=== PATIENT | male | born 1935 | race Caucasian/White ===

== ENCOUNTER 2022-11-17 13:38 | Inpatient (IN) | payer MEDICARE ==
[2022-11-17] MEDS ORDERED: ONDANSETRON 4 MG/2 ML VIAL IVP STA (13:55)
[2022-11-17] MEDS ORDERED: LORazepam 1 MG TAB PO STA (13:56)
--- NOTE | 2022-11-17 14:03 | ED ---
General Adult HPI - General Stated complaint: CHF Time Seen by Provider: 11/17/22 13:38 Source: patient, RN notes reviewed, old records reviewed - History of Present Illness Initial comments: This is an 86-year-old male who was sent to us from [facility] for congestive heart failure and a nosebleed. Patient had the nose packed [place] packing came on the patient was not bleeding at this time. Patient states he has been having shortness of breath the last few days he went to [facility] he normally goes down to 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 Patient requested transfer to our facility. Patient states currently he still but anxious and nauseous and he still having a little bit of a hard time breathing. Patient did receive 20 of Lasix prior to arrival. Patient denies any chest pain or difficulty breathing or any recent fever chills or cough Review of Systems ROS Statement: Those systems with pertinent positive or pertinent negative responses have been documented in the HPI. ROS Other: All systems not noted in ROS Statement are negative. General Exam - General Exam Comments Initial Comments: GENERAL: Patient is well-developed and well-nourished. Patient is nontoxic and well- hydrated and is in mild distress. ENT: Neck is soft and supple. No significant lymphadenopathy is noted. Oropharynx is clear. Moist mucous membranes. Neck has full range of motion without eliciting any pain. EYES: The sclera were anicteric and conjunctiva were pink and moist. Extraocular movements were intact and pupils were equal round and reactive to light. Eyelids were unremarkable. PULMONARY: Unlabored respirations. Good breath sounds bilaterally. No audible rales rhonchi or wheezing was noted. CARDIOVASCULAR: There is a regular rate and rhythm without any murmurs gallops or rubs. ABDOMEN: Soft and nontender with normal bowel sounds. SKIN: Skin is clear with no lesions or rashes and otherwise unremarkable. NEUROLOGIC: Patient is alert and oriented x3. Cranial nerves II through XII are grossly intact. Motor and sensory are also intact. Normal speech, volume and content. Symmetrical smile. MUSCULOSKELETAL: Normal extremities with adequate strength and full range of motion. LYMPHATICS: No significant lymphadenopathy is noted PSYCHIATRIC: Normal psychiatric evaluation. Medical Decision Making - Medical Decision Making Was pt. sent in by a medical professional or institution (, PA, FREIGHT BREAKER, urgent care, hospital, or long term...) When possible be specific @ -[facility] transfer the patient to us Did you speak to anyone other than the patient for history (EMS, parent, family, police, friend...)? What history was obtained from this source @ -I spoke to the ER document [facility] prior to transfer Did you review nursing and triage notes (agree or disagree)? Why? @ -I reviewed and agree with nursing and triage notes Were old charts reviewed (outside hosp., previous admission, EMS record, old EKG, old radiological studies, urgent care reports/EKG's, long term records)? Report findings @ -I reviewed all the documentation lab work and radiological studies from [facility]. Differential Diagnosis (chest pain, altered mental status, abdominal pain women, abdominal pain men, vaginal bleeding, weakness, fever, dyspnea, syncope, headache, dizziness, GI bleed, back pain, seizure, CVA, palpatations, mental health, musculoskeletal)? @ -Differential Dyspnea: Coronary syndrome, arrhythmia, tamponade, asthma, COPD, pulmonary embolism, pneumonia, pneumothorax, pulmonary effusion, anaphylaxis, diabetic ketoacidosis, flailed chest, pulmonary contusion, diaphragmatic rupture, anemia, neuromuscular, this is not meant to be an all-inclusive list. EKG interpreted by me (3pts min.). @ -As above X-rays interpreted by me (1pt min.). @ -None done CT interpreted by me (1pt min.). @ -None done U/S interpreted by me (1pt. min.). @ -None done What testing was considered but not performed or refused? (CT, X-rays, U/S, labs)? Why? @ -None What meds were considered but not given or refused? Why? @ -None Did you discuss the management of the patient with other professionals (professionals i.e. , PA, FREIGHT BREAKER, lab, RT, psych nurse, adoption social worker, wan support specialist, teacher, police or patrol park officer, case checker)? Give summary @ -With Dr. Landry he agreed to admit the patient admitted the patient Was smoking cessation discussed for >3mins.? @ -No Was critical care preformed (if so, how long)? @ -No Were there social determinants of health that impacted care today? How? (Homelessness, low income, unemployed, alcoholism, drug addiction, transportation, low edu. Level, literacy, decrease access to med. care, intermediate, rehab)? @ -No Was there de-escalation of care discussed even if they declined (Discuss DNR or withdrawal of care, Hospice)? DNR status @ -No What co-morbidities impacted this encounter? (DM, HTN, Smoking, COPD, CAD, Cancer, CVA, ARF, Chemo, Hep., AIDS, mental health diagnosis, sleep apnea, morbid obesity)? @ -None Was patient admitted / discharged? Hospital course, mention meds given and route, prescriptions, significant lab abnormalities, going to OR and other pertinent info. @ -Patient was given some Zofran for the nausea and Ativan for his anxiety. Patient oriented 20 of Lasix prior to arrival so at this point time I will hold the diuretics in order them on the floor. Undiagnosed new problem with uncertain prognosis? @ -No Drug Therapy requiring intensive monitoring for toxicity (Heparin, Nitro, Insulin, Cardizem)? @ -No Were any procedures done? @ -No Diagnosis/symptom? @ -Acute pulmonary edema Acute, or Chronic, or Acute on Chronic? @ -Acute Uncomplicated (without systemic symptoms) or Complicated (systemic symptoms)? @ -,. Side effects of treatment? @ -No Exacerbation, Progression, or Severe Exacerbation? @ -No Poses a threat to life or bodily function? How? (Chest pain, [place], [place], pneumonia, PE, COPD, DKA, ARF, appy, cholecystitis, CVA, Diverticulitis, Homicidal, Suicidal, threat to staff... and all critical care pts) @ -Yes this could lead to have hypoxia and end organ dysfunction Disposition Clinical Impression: Acute pulmonary edema, Epistaxis Disposition: ADMITTED IP TO THIS HOSP Is patient prescribed a controlled substance at d/c from ED?: No Referrals: Cosme Mac MD [Primary Care Provider] - 1-2 days Time of Disposition: 14:03
[2022-11-17] MEDS: FUROSEMIDE 10 MG/ML 4 ML VIAL IV SCH ×2 (14:36→20:40)
[2022-11-17] MEDS ORDERED: DEXTROSE 50% SYRINGE 50 ML IVP PRN ×2 (18:30)
[2022-11-17 19:55] LABS: Glucose,Whole Blood 189 mg/dL (70-110)
[2022-11-17] MEDS: CLOTRIMAZOLE TROCHE 10 MG TROCHE PO SCH ×2 (20:40→23:46)
[2022-11-17] MEDS: POTASSIUM CHLORIDE ER 20 MEQ TAB.ER PO SCH (20:40)
[2022-11-17] MEDS: NITROGLYCERIN EXTENDED RELEASE 2.5 MG CAPSULE.ER PO SCH (20:40)
[2022-11-17] MEDS: VIT A,C & E-LUTEIN-MINERALS 1 EACH TAB PO SCH (20:40)
[2022-11-17] MEDS: GABAPENTIN 300 MG CAP PO SCH (20:40)
[2022-11-17] MEDS: METOPROLOL SUCCINATE (ER) 100 MG TAB.ER.24H PO SCH (20:40)
[2022-11-17] MEDS: INSULIN ASPART (NovoLOG) 100 UNIT/ML VIAL SQ SCH (20:41)
--- NOTE | 2022-11-17 21:28 | P.HPIM ---
History of Present Illness H&P Date: 11/17/22 Chief Complaint: Epistaxis This is a pleasant 86-year-old patient, but chronic stable medical conditions include CAD, CHF, diabetes, GERD, hypertension, hyperlipidemia, gout, neuropathy, permanent pacemaker. Patient is very hard of hearing. Patient was transferred here from [facility]. As per the ER notes she was transferred here for CHF and severe nosebleed. Nasal packing had been done at other hospital and he was not bleeding when he arrived here. In fact his packing fell out. Patient himself states his breathing is not a problem. And at this just like his baseline. Apparently was given some Lasix Arlet been coming here. No fever no chills no c ough. Does use a walker at baseline. Review of systems: GEN.: None EYES: None HEENT: Nasal bleeding NECK: None RESPIRATORY: Questionable short of breath CARDIOVASCULAR: None GASTROINTESTINAL: None GENITOURINARY: None MUSCULOSKELETAL: Joint pains LYMPHATICS: None HEMATOLOGICAL: None PSYCHIATRY: None NEUROLOGICAL: Does use a walker Past medical history to include: CAD, CHF, diabetes, GERD, hard of hearing, hypertension, hyperlipidemia, gout, neuropathy, esophageal spasm, permanent pacemaker Social history: . No smoking or alcohol. Does use a walker. Physical examination: VITAL SIGNS: 98.4, 67, 19, 1 63 x 73, 97% on 3 L GENERAL: BMI 33.7, laying in bed awake slightly tired. EYES: Pupils equal. Conjunctiva normal. HEENT: External appearance of nose and ears normal, oral cavity grossly normal hard of hearing. NECK: JVD not raised; masses not palpable. HEART: First and second heart sounds are normal; no edema. LUNGS: Respiratory rate increased; decreased breath sounds. ABDOMEN: Soft, nontender, liver spleen not palpable, no masses palpable. PSYCH: Able to hold a simple conversationl. MUSCULOSKELETAL:No Clubbing/cyanosis;muscles-grossly intact. OA NEUROLOGICAL: Cranial nerves grossly intact; no facial asymmetry, power and sensation grossly intact. LYMPHATICS: No lymph nodes palpable in the axilla and neck INVESTIGATIONS, Assessment and plan: -Possible acute CHF exacerbation. Patient's feels he is at baseline. Received Lasix prior to coming down from [facility]. Telemetry. Chest x-ray. Consult cardio . ProBNP.. 2-D echo -Severe epistaxis. Patient received a nasal packing at [facility]. Packing fell out before the patient arrived here. Currently no bleeding. -Depression Prozac -Peripheral neuropathy Neurontin -Diabetes mellitus type 2 and oral hypoglycemic Amaryl. Follow Accu-Cheks -Essential hypertension Toprol-XL 100 mg twice a day. Losartan. 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 Past Medical History History of Any Multi-Drug Resistant Organisms: None Reported Past Surgical History: Pacemaker Additional Past Surgical History / Comment(s): catract Past Psychological History: No Psychological Hx Reported Smoking Status: Never smoker Past Alcohol Use History: None Reported Past Drug Use History: None Reported - Past Family History Father Family Medical History: Cancer Additional Family Medical History / Comment(s): lung cancer Mother Family Medical History: Cancer Additional Family Medical History / Comment(s): breast cancer Medications and Allergies Home Medications Medication Instructions Recorded Confirmed Type Aspirin EC [Ecotrin Low Dose] 81 mg PO DAILY 11/17/22 11/17/22 History Biotin [Biotin Disolve] 10,000 mcg PO DAILY 11/17/22 11/17/22 History Clotrimazole Teja [Mycelex 10 mg PO 5XD 11/17/22 11/17/22 History Teja] FLUoxetine HCL [PROzac] 40 mg PO DAILY 11/17/22 11/17/22 History Fexofenadine HCl [Yumi Allergy] 180 mg PO DAILY 11/17/22 11/17/22 History Furosemide [Lasix] 20 mg PO HS 11/17/22 11/17/22 History Furosemide [Lasix] 40 mg PO DAILY 11/17/22 11/17/22 History Gabapentin [Neurontin] 300 mg PO TID 11/17/22 11/17/22 History Glimepiride [Amaryl] 1 mg PO DAILY 11/17/22 11/17/22 History Losartan Potassium 50 mg PO DAILY 11/17/22 11/17/22 History Meclizine [Antivert] 12.5 mg PO BID PRN 11/17/22 11/17/22 History Metoprolol Succinate (ER) [Toprol 100 mg PO BID 11/17/22 11/17/22 History Xl] Multivit-Min/FA/Lycopen/Lutein 1 tab PO DAILY 11/17/22 11/17/22 History [Centrum Silver Tablet] Nitroglycerin Extended Release 2.5 mg PO BID 11/17/22 11/17/22 History [Nitro-Bid] Potassium Chloride ER [K-Dur 20] 20 meq PO BID 11/17/22 11/17/22 History Tamsulosin HCl [Flomax] 0.4 mg PO DAILY 11/17/22 11/17/22 History Vit C/E/Zn/Coppr/Lutein/Zeaxan 1 cap PO BID 11/17/22 11/17/22 History [Preservision Areds 2 Softgel] hydrALAZINE HCL [Apresoline] 50 mg PO DAILY 11/17/22 11/17/22 History Allergies Allergy/AdvReac Type Severity Reaction Status Date / Time cephalexin [From Keflex] Allergy Unknown Verified 11/17/22 16:23 codeine Allergy Unknown Verified 11/17/22 16:23 Penicillins Allergy Unknown Verified 11/17/22 16:23 prochlorperazine Allergy Unknown Verified 11/17/22 16:23 [From Compazine] Sulfa (Sulfonamide Allergy Unknown Verified 11/17/22 16:23 Antibiotics) Physical Exam Vitals: Vital Signs Temp Pulse Resp BP Pulse Ox 11/17/22 15:05 97.8 F 61 18 163/73 97 11/17/22 14:25 18 11/17/22 14:05 97.7 F 60 18 183/72 97 11/17/22 14:01 97.6 F 68 18 179/69 97 Intake and Output 11/17/22 11/17/22 11/17/22 06:59 14:59 22:59 Other: Weight 94.801 kg
[2022-11-18 06:15] LABS: Glucose,Whole Blood 115 mg/dL (70-110)
[2022-11-18] MEDS: CLOTRIMAZOLE TROCHE 10 MG TROCHE PO SCH ×4 (06:16→21:49)
[2022-11-18] MEDS: FUROSEMIDE 10 MG/ML 4 ML VIAL IV SCH ×3 (06:16→21:09)
[2022-11-18] MEDS: INSULIN ASPART (NovoLOG) 100 UNIT/ML VIAL SQ SCH ×3 (06:18→17:04)
[2022-11-18] MEDS ORDERED: LOSARTAN 50 MG TAB PO SCH (09:00)
[2022-11-18] MEDS ORDERED: NON FORMULARY DRUG (Biotin [Biotin Disolve] 10,000 MCG Tablet) PO SCH (09:00)
[2022-11-18 09:39] LABS: Basophils % (A) 1 %; Eosinophils # (A) 0.1 k/uL (0-0.7); Eosinophils % (A) 2 %; HCT 30.5 % (39.0-53.0); HGB 9.7 gm/dL (13.0-17.5); Hypochromasia Moderate; Lymphocytes # (A) 1.1 k/uL (1.0-4.8); Lymphocytes % (A) 22 %; MCH 26.9 pg (25.0-35.0); MCHC 31.8 g/dL (31.0-37.0); MCV 84.5 fL (80.0-100.0); Mean Platelet Volume 8.2; Monocytes # (A) 0.4 k/uL (0-1.0); Monocytes % (A) 8 %; Neutrophils # (A) 3.3 k/uL (1.3-7.7); Neutrophils % (A) 65 %; Platelet Count 176 k/uL (150-450); RBC 3.61 m/uL (4.30-5.90); RDW 15.2 % (11.5-15.5); WBC 5.1 k/uL (3.8-10.6)
--- NOTE | 2022-11-18 09:44 | P.CRDCN ---
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 Quintero, with past medical history of hypertension, hyperlipidemia, history of coronary artery disease with stent of the LAD, open mitral valve surgery in -details are not available, chronic heart failure, paroxysmal atrial fibrillation, pacemaker, diabetes mellitus type 2, COPD. Details of his cardiac history are not known at this time. Patient presented to [facility] with complaints of difficulty breathing and nosebleed. Patient had packing done of the nosebleed at [facility] and this subsequently subsided. Creatinine was 1.38, magnesium 1.8 and potassium 3.5. Troponin negative 1 and proBNP 4843. Due to heart failure, patient had requested transfer to [facility] although because ENT was not available there, patient was transferred to [facility]. We have been asked to evaluate the patient for acute pulmonary edema. Patient states he has had episodes of the same in the past but not as bad. Patient was started on IV Lasix received 20 mg at [facility] prior to transfer. He states he feels he urinated quite a bit overnight and shortness of breath is improved. Patient had a recent hospitalization at [facility] which time he was treated for acute systolic heart failure and non-ST elevated NC status post cardiac catheterization finding total occlusion of the mid LAD. Home cardiac medications: Aspirin 81 mg daily, Lasix 40 mg in the morning 20 oh grams in the evening, hydralazine 50 mg daily, losartan 50 mg daily, Toprol-XL 100 mg twice daily, Nitro-Bid 2.5 mg twice daily, potassium chloride 20 mEq twic e daily Patient underwent cardiac catheterization 09/[address] Garg at [facility] that revealed HEAD OF [employer] of mid LAD where he had a previous stent. Dominant RCA and a nondominant circumflex and left main are free of significant disease. Echocardiogram performed August 2022 and [facility] revealed EF 30- 35%, RVSP 50-55 mmHg. Review Of Systems: At the time of my evaluation: Constitutional: No fever, no chills. No weakness, fatigue or lethargy. EENT: No headache. No dizziness. Lungs: Reports shortness of breath, cough, no sputum production. No wheezing. Cardiovascular: No chest pain, no lower extremity edema. No palpitations. No paroxysmal nocturnal dyspnea. No orthopnea. No lightheadedness or dizziness. No syncopal episodes. Abdominal: No abdominal pain. No nausea, vomiting. No diarrhea. No constipation. No bloody or tarry stools. Genitourinary: No dysuria.. No urinary retention. Musculoskeletal: No myalgias. No muscle weakness, no frequent falls. No back pain. No neck pain. Integumentary: No wounds. No rash. No unusual bruising. Neurologic: No aphasia. No facial droop. No change in mentation. No head injury. No headache. Physical examination: Gen: This is a an 86-year-old male. He is resting bed and appears to be comfortable at rest. VS: reviewed HEENT: Head is atraumatic, normocephalic. Pupils equal, round. Sclerae is anicteric. NECK: Supple. No JVD. . LUNGS: Diminished in the bases. No intercostal retractions. HEART: Regular rate and rhythm. No murmur. ABDOMEN: Soft No tenderness. EXTREMITIES: Trace bilateral pedal edema. No calf tenderness. NEUROLOGICAL: Patient is awake, alert and oriented x3. Assessment: Acute on chronic systolic heart failure Coronary artery disease History of mitral valve surgery Paroxysmal atrial fibrillation not on anticoagulation unknown reason for this History of pacemaker implantation Diabetes mellitus type 2 COPD Plan: Resume patient's home cardiac medications Continue patient on Lasix 20 mg IV every 8 hours Monitor I&O, daily weights, I's and renal function Obtain patient records from [facility]. Obtain 2-D echocardiogram and Doppler study to assess cardiac structure and function Further recommendations to follow based upon clinical course Thank you kindly for this consultation. Nurse practitioner note has been reviewed, I agree with documented findings and plan of care. Patient was seen and examined. Past Medical History Past Medical History: Coronary Artery Disease (CAD), Chest Pain / Angina, Heart Failure, Diabetes Mellitus, GERD/Reflux, Hearing Disorder / Deafness, Hyperlipidemia, Hypertension Additional Past Medical History / Comment(s): gout, neuropathy, esophageal spas ms History of Any Multi-Drug Resistant Organisms: None Reported Past Surgical History: Pacemaker Additional Past Surgical History / Comment(s): catract Past Anesthesia/Blood Transfusion Reactions: No Reported Reaction Type of Cardiac Device: Permanent Pacemaker Device Placement Date:: 06/11/2021 Past Psychological History: No Psychological Hx Reported Smoking Status: Never smoker Past Alcohol Use History: None Reported Past Drug Use History: None Reported - Past Family History Father Family Medical History: Cancer Additional Family Medical History / Comment(s): lung cancer Mother Family Medical History: Cancer Additional Family Medical History / Comment(s): breast cancer Medications and Allergies Home Medications Medication Instructions Recorded Confirmed Type Aspirin EC [Ecotrin Low Dose] 81 mg PO DAILY 11/17/22 11/17/22 History Biotin [Biotin Disolve] 10,000 mcg PO DAILY 11/17/22 11/17/22 History Clotrimazole Teja [Mycelex 10 mg PO 5XD 11/17/22 11/17/22 History Teja] FLUoxetine HCL [PROzac] 40 mg PO DAILY 11/17/22 11/17/22 History Fexofenadine HCl [Yumi Allergy] 180 mg PO DAILY 11/17/22 11/17/22 History Furosemide [Lasix] 20 mg PO HS 11/17/22 11/17/22 History Furosemide [Lasix] 40 mg PO DAILY 11/17/22 11/17/22 History Gabapentin [Neurontin] 300 mg PO TID 11/17/22 11/17/22 History Glimepiride [Amaryl] 1 mg PO DAILY 11/17/22 11/17/22 History Losartan Potassium 50 mg PO DAILY 11/17/22 11/17/22 History Meclizine [Antivert] 12.5 mg PO BID PRN 11/17/22 11/17/22 History Metoprolol Succinate (ER) [Toprol 100 mg PO BID 11/17/22 11/17/22 History Xl] Multivit-Min/FA/Lycopen/Lutein 1 tab PO DAILY 11/17/22 11/17/22 History [Centrum Silver Tablet] Nitroglycerin Extended Release 2.5 mg PO BID 11/17/22 11/17/22 History [Nitro-Bid] Potassium Chloride ER [K-Dur 20] 20 meq PO BID 11/17/22 11/17/22 History Tamsulosin HCl [Flomax] 0.4 mg PO DAILY 11/17/22 11/17/22 History Vit C/E/Zn/Coppr/Lutein/Zeaxan 1 cap PO BID 11/17/22 11/17/22 History [Preservision Areds 2 Softgel] hydrALAZINE HCL [Apresoline] 50 mg PO DAILY 11/17/22 11/17/22 History Allergies Allergy/AdvReac Type Severity Reaction Status Date / Time cephalexin [From Keflex] Allergy Unknown Verified 11/17/22 16:23 codeine Allergy Unknown Verified 11/17/22 16:23 Penicillins Allergy Unknown Verified 11/17/22 16:23 prochlorperazine Allergy Unknown Verified 11/17/22 16:23 [From Compazine] Sulfa (Sulfonamide Allergy Unknown Verified 11/17/22 16:23 Antibiotics) Physical Exam Vitals: Vital Signs Temp Pulse Pulse Resp BP BP Pulse Ox 11/18/22 08:01 96 11/18/22 04:00 68 18 144/68 100 11/18/22 02:00 63 18 11/18/22 00:00 63 18 152/71 98 11/17/22 20:00 97.9 F 74 18 143/63 99 11/17/22 16:38 98.4 F 67 19 191/80 100 11/17/22 15:05 97.8 F 61 18 163/73 97 11/17/22 14:25 18 11/17/22 14:05 97.7 F 60 18 183/72 97 11/17/22 14:01 97.6 F 68 18 179/69 97 Intake and Output 11/17/22 11/18/22 11/18/22 22:59 06:59 14:59 Output Total 350 Balance -350 Output: Urine 350 Other: Voiding Method Toilet Toilet Urinal Urinal # Voids 250 Weight 94.801 kg 90.8 kg Results 11/18/22 07:55 11/18/22 07:55 Current Medications Generic Name Dose Route Start Last Admin Trade Name Freq PRN Reason Stop Dose Admin Aspirin 81 mg 11/18/22 09:00 Aspirin 81 Mg PO DAILY ANGELES Clotrimazole 10 mg 11/17/22 20:00 11/18/22 06:16 Clotrimazole Teja 10 Mg Teja PO 11/18/22 23:00 10 mg 5XD ANGELES Administration Dextrose/Water 25 ml 11/17/22 18:30 Dextrose 50% Syringe 50 Ml IVP PER PROTOCOL PRN Hypoglycemia Protocol Dextrose/Water 50 ml 11/17/22 18:30 Dextrose 50% Syringe 50 Ml IVP PER PROTOCOL PRN Hypoglycemia Protocol Fluoxetine HCl 40 mg 11/18/22 09:00 Fluoxetine Hcl 20 Mg Cap PO DAILY ANGELES Furosemide 20 mg 11/17/22 14:15 11/18/22 06:16 Furosemide 10 Mg/Ml 4 Ml Vial IV 20 mg Q8H ANGELES Administration Gabapentin 300 mg 11/17/22 22:00 11/17/22 20:40 Gabapentin 300 Mg Cap PO 300 mg TID ANGELES Administration Glimepiride 1 mg 11/18/22 09:00 Glimepiride 1 Mg Tab PO DAILY ANGELES Insulin Aspart 0 unit 11/17/22 19:00 11/18/22 06:18 Insulin Aspart (Novolog) 100 Unit/Ml Vial SQ Not Given AC-TID [facility] Protocol Loratadine 10 mg 11/18/22 09:00 Loratadine 10 Mg Tab PO DAILY [facility] Losartan Potassium 50 mg 11/18/22 09:00 Losartan 50 Mg Tab PO DAILY [facility] Metoprolol Succinate 100 mg 11/17/22 21:00 11/17/22 20:40 Metoprolol Succinate (Er) 100 Mg Tab.Er.24h PO 100 mg BID ANGELES Administration Multivitamins 1 each 11/18/22 09:00 Multivitamins, Thera 1 Each Tab PO DAILY [facility] Multivitamins/Minerals 1 each 11/17/22 21:00 11/17/22 20:40 Vit A,C & I-Kdgipb-Tpsaoobn 1 Each Tab PO 1 each BID ANGELES Administration Nitroglycerin 2.5 mg 11/17/22 21:00 11/17/22 20:40 Nitroglycerin Extended Release 2.5 Mg Capsule.Er PO 2.5 mg BID ANGELES Administration Potassium Chloride 20 meq 11/17/22 21:00 11/17/22 20:40 Potassium Chloride Er 20 Meq Tab.Er PO 20 meq BID ANGELES Administration Tamsulosin HCl 0.4 mg 11/18/22 09:00 Tamsulosin 0.4 Mg Cap.Er.24h PO DAILY ANGELES Intake and Output 11/17/22 11/18/22 11/18/22 22:59 06:59 14:59 Output Total 350 Balance -350 Output: Urine 350 Other: Voiding Method Toilet Toilet Urinal Urinal # Voids 250 Weight 94.801 kg 90.8 kg
[2022-11-18] MEDS: POTASSIUM CHLORIDE ER 20 MEQ TAB.ER PO SCH ×2 (09:48→21:08)
[2022-11-18] MEDS: MULTIVITAMINS, THERA 1 EACH TAB PO SCH (09:48)
[2022-11-18] MEDS: LORATADINE 10 MG TAB PO SCH (09:48)
[2022-11-18] MEDS: GABAPENTIN 300 MG CAP PO SCH ×3 (09:48→21:08)
[2022-11-18] MEDS: GLIMEPIRIDE 1 MG TAB PO SCH (09:48)
[2022-11-18] MEDS: METOPROLOL SUCCINATE (ER) 100 MG TAB.ER.24H PO SCH ×2 (09:48→21:09)
[2022-11-18] MEDS: TAMSULOSIN 0.4 MG CAP.ER.24H PO SCH (09:48)
[2022-11-18] MEDS: FLUoxetine HCL 20 MG CAP PO SCH (09:48)
[2022-11-18 09:49] LABS: ALT 17 U/L (4-49); AST 22 U/L (17-59); African American GFR (CKD) 66 (>60 ml/min/1.73 sqM); Albumin 3.4 g/dL (3.5-5.0); Alkaline Phosphatase 45 U/L (38-126); Anion Gap 8 mmol/L; Blood Urea Nitrogen 32 mg/dL (9-20); Calcium 8.7 mg/dL (8.4-10.2); Carbon Dioxide 28 mmol/L (22-30); Chloride 107 mmol/L (98-107); Glucose 92 mg/dL (74-99); Non-African American GFR(CKD) 57 (>60 ml/min/1.73 sqM); Potassium 3.3 mmol/L (3.5-5.1); Sodium 143 mmol/L (137-145); Total Bilirubin 0.8 mg/dL (0.2-1.3); Total Protein 5.9 g/dL (6.3-8.2)
[2022-11-18] MEDS: VIT A,C & E-LUTEIN-MINERALS 1 EACH TAB PO SCH ×2 (09:49→21:08)
[2022-11-18] MEDS: NITROGLYCERIN EXTENDED RELEASE 2.5 MG CAPSULE.ER PO SCH ×2 (09:49→21:08)
[2022-11-18 09:59] LABS: NT-Pro-B-Type Natriuretic Pept 4170 pg/mL
[2022-11-18 11:45] LABS: Glucose,Whole Blood 140 mg/dL (70-110)
[2022-11-18] MEDS ORDERED: LOSARTAN 50 MG TAB PO STA (12:12)
[2022-11-18] MEDS: ASPIRIN 81 MG PO SCH (12:18)
[2022-11-18 13:16] VITALS: BMI 32.3
[2022-11-18] MEDS: NYSTATIN 100,000 UNIT/GM POWD 15 GM TOPICAL SCH ×2 (16:30→21:09)
[2022-11-18 16:47] LABS: Glucose,Whole Blood 129 mg/dL (70-110)
--- NOTE | 2022-11-18 16:59 | CA ---
Transthoracic Echo Report Name: Matthew Medeiros Age: 86 Gender: M : 1935 Exam Date: 11/18/2022 08:05 Exam Location: [facility] Ht (in): 66 Wt (lb): 209 Ordering Physician: Juan Landry MD Attending/Referring Phys: Pipe Supervisor Nahed Gilmore [facility] Procedure CPT: Indications: chf Cardiac Hx: Technical Quality: Technically difficult study Contrast 1: Lumason Total Dose (mL): 5 Contrast 2: Total Dose (mL): MEASUREMENTS (Male / Female) Normal Values 2D ECHO LV Diastolic Diameter PLAX 5.0 cm 4.2 - 5.9 / 3.9 - 5.3 cm LV Systolic Diameter PLAX 4.4 cm IVS Diastolic Thickness 1.5 cm 0.6 - 1.0 / 0.6 - 0.9 cm LVPW Diastolic Thickness 1.4 cm 0.6 - 1.0 / 0.6 - 0.9 cm LV Relative Wall Thickness 0.6 LVOT Diameter 2.1 cm LV Diastolic Volume MOD BP 131.5 cm??? 67 - 155 / 56 - 104 cm??? LV Systolic Volume MOD BP 85.1 cm??? 22 - 58 / 19 - 49 cm??? LV Ejection Fraction MOD BP 35.3 % >= 55 % LV Cardiac Index MOD BP 1476.2 cm???/min???m??? LV Diastolic Volume MOD 4C 152.2 cm??? LV Systolic Volume MOD 4C 105.4 cm??? LV Ejection Fraction MOD 4C 30.8 % LV Cardiac Index MOD 4C 1490.0 cm???/min???m??? LV Diastolic Length 4C 8.7 cm LV Systolic Length 4C 7.7 cm LV Diastolic Volume MOD 2C 111.7 cm??? LV Systolic Volume MOD 2C 68.5 cm??? LV Ejection Fraction MOD 2C 38.7 % LV Cardiac Index MOD 2C 1374.3 cm???/min???m??? LV Diastolic Length 2C 8.5 cm LV Systolic Length 2C 7.6 cm Ascending Aorta Diameter 3.4 cm M-MODE Aortic Root Diameter MM 2.7 cm LA Systolic Diameter MM 4.3 cm LA Ao Ratio MM 1.6 AV Cusp Separation MM 1.2 cm DOPPLER AV Peak Velocity 148.6 cm/s AV Peak Gradient 8.8 mmHg AV Mean Velocity 92.8 cm/s AV Mean Gradient 4.2 mmHg AV Velocity Time Integral 27.9 cm AI Peak Velocity 330.2 cm/s AI Peak Gradient 43.6 mmHg AI Pressure Half Time 425.8 ms LVOT Peak Velocity 93.6 cm/s LVOT Peak Gradient 3.5 mmHg LVOT Velocity Time Integral 20.0 cm LVOT Stroke Volume 70.4 cm??? LVOT Stroke Volume Index 34.6 ml/m??? LVOT Cardiac Index 2241.2 cm???/min???m??? AV Area Cont Eq vti 2.5 cm??? AV Area Cont Eq pk 2.2 cm??? Mitral E Point Velocity 74.8 cm/s Mitral A Point Velocity 65.7 cm/s Mitral E to A Ratio 1.1 MV Deceleration Time 171.1 ms TR Peak Velocity 307.7 cm/s TR Peak Gradient 37.9 mmHg Right Atrial Pressure 15.0 mmHg Pulmonary Artery Systolic Pressu 52.9 mmHg Right Ventricular Systolic Press 52.9 mmHg FINDINGS Left Ventricle Moderately increased left ventricular wall thickness. Moderate concentric left ventricular hypertrophy. Left ventricular cavity size normal. Moderately increased septal wall thickness. Severely increased left ventricular systolic volume. Moderately decreased left ventricular ejection fraction. Left ventricular ejection fraction is estimated at 30-35%. Right Ventricle Mild right ventricular dilatation. Moderate pulmonary hypertension. Right Atrium Mild right atrial dilatation. Left Atrium Moderate left atrial dilatation. Mitral Valve Structurally normal mitral valve. Mild mitral regurgitation. Aortic Valve Aortic valve not well visualized. Aortic valve sclerosis. Mild aortic regurgitation. Tricuspid Valve Prosthetic tricuspid valve. Mild tricuspid regurgitation. Pulmonic Valve Structurally normal pulmonic valve. [id number] pulmonic regurgitation. Pericardium No pericardial effusion. Aorta Normal size aortic root and proximal ascending aorta. CONCLUSIONS Concentric left ventricular hypertrophy with moderate LV systolic dysfunction with an ejection fraction of 35% moderate pulmonary hypertension Mild mitral and aortic regurgitation Previewed by: Dr. Nasim River MD (Electronically Signed) Final Date: 18 November 2022 16:58
[2022-11-18 20:47] LABS: Glucose,Whole Blood 121 mg/dL (70-110)
--- NOTE | 2022-11-18 23:51 | XR ---
EXAMINATION TYPE: XR chest 2V DATE OF EXAM: 11/18/2022 COMPARISON: 11/17/2022 INDICATION: CHF TECHNIQUE: Frontal and lateral views of the chest are obtained. FINDINGS: The heart size is mildly prominent. The pulmonary vasculature is normal. Mild left lower lobe infiltrate may be present. Some mild increased lung markings are in the right in frahilar lung base. Correlate for subsegmental atelectasis. IMPRESSION: 1. Right basilar subsegmental atelectasis. Follow-up can be performed
[2022-11-19 06:26] LABS: Glucose,Whole Blood 106 mg/dL (70-110)
[2022-11-19] MEDS: INSULIN ASPART (NovoLOG) 100 UNIT/ML VIAL SQ SCH ×3 (06:32→16:31)
[2022-11-19] MEDS: FUROSEMIDE 10 MG/ML 4 ML VIAL IV SCH ×2 (06:35→12:47)
[2022-11-19] MEDS: NITROGLYCERIN EXTENDED RELEASE 2.5 MG CAPSULE.ER PO SCH ×2 (09:19→20:49)
[2022-11-19] MEDS: LOSARTAN 50 MG TAB PO SCH (09:19)
[2022-11-19] MEDS: METOPROLOL SUCCINATE (ER) 100 MG TAB.ER.24H PO SCH ×2 (09:19→20:49)
[2022-11-19] MEDS: POTASSIUM CHLORIDE ER 20 MEQ TAB.ER PO SCH ×2 (09:19→20:49)
[2022-11-19] MEDS: LORATADINE 10 MG TAB PO SCH (09:19)
[2022-11-19] MEDS: GABAPENTIN 300 MG CAP PO SCH ×3 (09:19→20:49)
[2022-11-19] MEDS: ASPIRIN 81 MG PO SCH (09:19)
[2022-11-19] MEDS: FLUoxetine HCL 20 MG CAP PO SCH (09:19)
[2022-11-19] MEDS: TAMSULOSIN 0.4 MG CAP.ER.24H PO SCH (09:19)
[2022-11-19] MEDS: VIT A,C & E-LUTEIN-MINERALS 1 EACH TAB PO SCH ×2 (09:19→20:49)
[2022-11-19] MEDS: GLIMEPIRIDE 1 MG TAB PO SCH (09:19)
[2022-11-19] MEDS: MULTIVITAMINS, THERA 1 EACH TAB PO SCH (09:19)
[2022-11-19] MEDS: NYSTATIN 100,000 UNIT/GM POWD 15 GM TOPICAL SCH ×3 (09:20→20:50)
[2022-11-19 09:50] LABS: HCT 34.5 % (39.0-53.0); HGB 10.5 gm/dL (13.0-17.5); Hypochromasia Marked; MCH 26.7 pg (25.0-35.0); MCHC 30.6 g/dL (31.0-37.0); MCV 87.2 fL (80.0-100.0); Mean Platelet Volume 7.7; Platelet Count 199 k/uL (150-450); RBC 3.95 m/uL (4.30-5.90); RDW 15.1 % (11.5-15.5); WBC 6.2 k/uL (3.8-10.6)
[2022-11-19 10:00] LABS: African American GFR (CKD) 59 (>60 ml/min/1.73 sqM); Anion Gap 5 mmol/L; Blood Urea Nitrogen 21 mg/dL (9-20); Calcium 8.9 mg/dL (8.4-10.2); Carbon Dioxide 33 mmol/L (22-30); Chloride 104 mmol/L (98-107); Glucose 116 mg/dL (74-99); Non-African American GFR(CKD) 51 (>60 ml/min/1.73 sqM); Potassium 3.9 mmol/L (3.5-5.1); Sodium 142 mmol/L (137-145)
[2022-11-19] MEDS ORDERED: ACETAMINOPHEN TAB 325 MG TAB PO PRN (11:18)
[2022-11-19 11:58] LABS: Glucose,Whole Blood 124 mg/dL (70-110)
[2022-11-19] MEDS: amLODIPine 5 MG TAB PO SCH (12:47)
--- NOTE | 2022-11-19 12:52 | P.PN ---
Subjective Progress Note Date: 11/19/22 History of present illness: This is an 86-year-old male follows with a interventional pain physician at [facility], Dr. Quintero, with past medical history of hypertension, hyperlipidemia, history of coronary artery disease with stent of the LAD, open mitral valve surgery in -details are not available, chronic heart failure, paroxysmal atrial fibrillation, pacemaker, diabetes mellitus type 2, COPD. Details of his cardiac history are not known at this time. Patient presented to [facility] with complaints of difficulty breathing and nosebleed. Patient had packing done of the nosebleed at [facility] and this subsequently subsided. Creatinine was 1.38, magnesium 1.8 and potassium 3.5. Troponin negative 1 and proBNP 4843. Due to heart failure, patient had requested transfer to [facility] although because ENT was not available there, patient was trans ferred to [facility]. We have been asked to evaluate the patient for acute pulmonary edema. Patient states he has had episodes of the same in the past but not as bad. Patient was started on IV Lasix received 20 mg at [facility] prior to transfer. He states he feels he urinated quite a bit overnight and shortness of breath is improved. Patient had a recent hospitalization at [facility] which time he was treated for acute systolic heart failure and non-ST elevated [place] status post cardiac catheterization finding total occlusion of the mid LAD. Home cardiac medications: Aspirin 81 mg daily, Lasix 40 mg in the morning 20 oh grams in the evening, hydralazine 50 mg daily, losartan 50 mg daily, Toprol-XL 100 mg twice daily, Nitro-Bid 2.5 mg twice daily, potassium chloride 20 mEq twice daily Patient underwent cardiac catheterization 09/[address] 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 Maura nant RCA and a nondominant circumflex and left main are free of significant disease. Echocardiogram performed August 2022 and [facility] revealed EF 30- 35%, RVSP 50-55 mmHg. 11/19 Patient is seen today in follow-up. He states he is feeling much better but feels he has not been urinating very much with the IV Lasix which is 20 mg every 8 hours. Weight appears to be down 4 kg. Yesterday, patient had a negative fluid balance of 500 ML's. A repeat blood work reveals potassium 3.9, BUN 21 creatinine 1.29, hemoglobin 10.5. Echocardiogram reveals concentric left ventricular hypertrophy with moderate LV systolic dysfunction with EF 35%, moderate pulmonary hypertension, mild mitral and aortic regurgitation. Physical examination: Gen: This is a an 86-year-old male. He is resting bed and appears to be comfortable at rest. VS: reviewed HEENT: Head is atraumatic, normocephalic. Pupils equal, round. Sclerae is anicteric. NECK: Supple. No JVD. . LUNGS: Diminished in the bases. No intercostal retractions. HEART: Regular rate and rhythm. No murmur. ABDOMEN: Soft No tenderness. EXTREMITIES: Trace bilateral pedal edema. No calf tenderness. NEUROLOGICAL: Patient is awake, alert and oriented x3. Assessment: Acute on chronic systolic heart failure Coronary artery disease History of mitral valve surgery Paroxysmal atrial fibrillation not on anticoagulation unknown reason for this History of pacemaker implantation Diabetes mellitus type 2 COPD Plan: Continue patient's home cardiac medications Transition IV Lasix to 60 mg daily and this may be continued at the time of discharge Monitor I&O, daily weights, I's and renal function Obtain patient records from [facility]. Further recommendations to follow based upon clinical course Nurse practitioner note has been reviewed, I agree with documented findings and plan of care. Patient was seen and examined. Objective - Vital Signs Vital signs: Vital Signs Temp 98.2 F 11/19/22 08:00 Pulse 62 11/19/22 08:00 Resp 18 11/19/22 08:00 BP 131/71 11/19/22 08:00 Pulse Ox 99 11/19/22 08:00 FiO2 Intake & Output 11/18/22 11/19/22 11/19/22 18:59 06:59 18:59 Intake Total 600 240 Output Total 300 800 225 Balance 300 -800 15 Weight 90.8 kg Intake: Oral 600 240 Output: Urine 300 800 225 Other: Voiding Method Toilet Toilet Toilet Urinal Urinal Urinal - Labs CBC & Chem 7: 11/19/22 09:04 11/19/22 09:04 Labs: Abnormal Lab Results - Last 24 Hours (Table) 11/18/22 11/18/22 11/18/22 Range/Units 11:40 16:45 20:46 RBC (4.30-5.90) m/uL Hgb (13.0-17.5) gm/dL Hct (39.0-53.0) % MCHC (31.0-37.0) g/dL Carbon Dioxide (22-30) mmol/L BUN (9-20) mg/dL Creatinine (0.66-1.25) mg/dL Glucose (74-99) mg/dL POC Glucose (mg/dL) 140 H 129 H 121 H (70-110) mg/dL 11/19/22 11/19/22 Range/Units 09:04 09:04 RBC 3.95 L (4.30-5.90) m/uL Hgb 10.5 L (13.0-17.5) gm/dL Hct 34.5 L (39.0-53.0) % MCHC 30.6 L (31.0-37.0) g/dL Carbon Dioxide 33 H (22-30) mmol/L BUN 21 H (9-20) mg/dL Creatinine 1.29 H (0.66-1.25) mg/dL Glucose 116 H (74-99) mg/dL POC Glucose (mg/dL) (70-110) mg/dL
[2022-11-19 16:22] LABS: Glucose,Whole Blood 124 mg/dL (70-110)
--- NOTE | 2022-11-19 18:04 | P.PN ---
Subjective Progress Note Date: 11/18/22 86-year-old male follows with a park worker at [facility], Dr. Quintero, with past medical history of hypertension, hyperlipidemia, history of coronary artery disease with stent of the LAD, open mitral valve surgery in -details are not available, chronic heart failure, paroxysmal atrial fibrillation, pacemaker, diabetes mellitus type 2, COPD. Details of his cardiac history are not known at this time. Patient presented to [facility] with complaints of difficulty breathing and nosebleed. Patient had packing done of the nosebleed at [facility] and this subsequently subsided. Creatinine was 1.38, magnesium 1.8 and potassium 3.5. Troponin negative 1 and proBNP 4843. Due to heart failure, patient had requested transfer to [facility] although because ENT was not available there, patient was transferred to [facility]. We have been asked to evaluate the patient for acute pulmonary edema. Patient states he has had episodes of the same in the past but not as bad. Patient was started on IV Lasix received [address] [facility] prior to transfer. He states he feels he urinated quite a bit overnight and shortness of breath is improved. Patient had a recent hospitalization at [facility] which time he was treated for acute systolic heart failure and non-ST elevated RI status post cardiac catheterization finding total occlusion of the mid LAD. Objective - Vital Signs Vital signs: Vital Signs Temp 98.9 F 11/18/22 09:30 Pulse 63 11/18/22 09:30 Resp 16 11/18/22 09:30 BP 188/87 11/18/22 09:30 Pulse Ox 99 11/18/22 09:30 FiO2 Intake & Output 11/17/22 11/18/22 11/18/22 18:59 06:59 18:59 Intake Total 118 240 Output Total 350 200 Balance -232 40 Weight 94.801 kg 90.8 kg 90.8 kg Intake: Oral 118 240 Output: Urine 350 200 Other: Voiding Method Toilet Urinal # Voids 250 - Exam Gen: This is a an 86-year-old male. He is resting bed and appears to be comfortable at rest. HEENT: Head is atraumatic, normocephalic. Pupils equal, round. Sclerae is anicteric. NECK: Supple. No JVD. . LUNGS: Diminished in the bases. No intercostal retractions. HEART: Regular rate and rhythm. No murmur. ABDOMEN: Soft No tenderness. EXTREMITIES: Trace bilateral pedal edema. No calf tenderness. NEUROLOGICAL: Patient is awake, alert and oriented x3. - Labs CBC & Chem 7: 11/19/22 09:04 11/19/22 09:04 Labs: Abnormal Lab Results - Last 24 Hours (Table) 11/17/22 11/18/22 11/18/22 Range/Units 19:53 06:14 07:55 RBC 3.61 L (4.30-5.90) m/uL Hgb 9.7 L (13.0-17.5) gm/dL Hct 30.5 L (39.0-53.0) % Potassium (3.5-5.1) mmol/L BUN (9-20) mg/dL POC Glucose (mg/dL) 189 H 115 H (70-110) mg/dL Total Protein (6.3-8.2) g/dL Albumin (3.5-5.0) g/dL 11/18/22 11/18/22 Range/Units 07:55 11:40 RBC (4.30-5.90) m/uL Hgb (13.0-17.5) gm/dL Hct (39.0-53.0) % Potassium 3.3 L (3.5-5.1) mmol/L BUN 32 H (9-20) mg/dL POC Glucose (mg/dL) 140 H (70-110) mg/dL Total Protein 5.9 L (6.3-8.2) g/dL Albumin 3.4 L (3.5-5.0) g/dL Assessment and Plan Assessment: Acute on chronic systolic heart failure Coronary artery disease History of mitral valve surgery Paroxysmal atrial fibrillation not on anticoagulation unknown reason for this History of pacemaker implantation Diabetes mellitus type 2 COPD Plan: Resume patient's home cardiac medications Continue patient on Lasix 20 mg IV every 8 hours Monitor I&O, daily weights, I's and renal function Obtain patient records from [facility]. Obtain 2-D echocardiogram and Doppler study to assess cardiac structure and function
--- NOTE | 2022-11-19 18:11 | P.PN ---
Subjective Progress Note Date: 11/19/22 86-year-old male follows with a tobacco dipper at [facility], Dr. Quintero, with past medical history of hypertension, hyperlipidemia, history of coronary artery disease with stent of the LAD, open mitral valve surgery in -details are not available, chronic heart failure, paroxysmal atrial fibrillation, pacemaker, diabetes mellitus type 2, COPD. Details of his cardiac history are not known at this time. Patient presented to [facility] with complaints of difficulty breathing and nosebleed. Patient had packing done of the nosebleed at [facility] and this subsequently subsided. Creatinine was 1.38, magnesium 1.8 and potassium 3.5. Troponin negative 1 and proBNP 4843. Due to heart failure, patient had requested transfer to [facility] although because ENT was not available there, patient was transferred to [facility]. We have been asked to evaluate the patient for acute pulmonary edema. Patient states he has had episodes of the same in the past but not as bad. Patient was started on IV Lasix received 20 mg at [facility] prior to transfer. He states he feels he urinated quite a bit overnight and shortness of breath is improved. Patient had a recent hospitalization at [facility] which time he was treated for acute systolic heart failure and non-ST elevated [place] status post cardiac catheterization finding total occlusion of the mid LAD. 11/19/2022 Patient is seen and evaluated with family at bedside; reports feeling improved overall Vital signs are reviewed and remained stable Blood work reveals sodium of 142, potassium 3.9, BUN/creatinine of 21/1.29; patient remains on IV Lasix and continues to have negative fluid balance; continues to lose weight Echocardiogram is completed and reveals concentric LVH and moderate LV systolic dysfunction with EF of 35% and pulmonary hypertension with mild mitral and aortic regurgitation -- Cardiology recommending to transition to oral Lasix -- Await records from [facility] Objective - Vital Signs Vital signs: Vital Signs Temp 98.2 F 11/19/22 08:00 Pulse 62 11/19/22 12:00 Resp 18 11/19/22 08:00 BP 164/74 11/19/22 12:00 Pulse Ox 100 11/19/22 12:00 FiO2 Intake & Output 11/18/22 11/19/22 11/19/22 18:59 06:59 18:59 Intake Total 600 480 Output Total 300 800 225 Balance 300 -800 255 Weight 90.8 kg Intake: Oral 600 480 Output: Urine 300 800 225 Other: Voiding Method Toilet Toilet Toilet Urinal Urinal Urinal - Exam Gen: This is a an 86-year-old male. He is resting bed and appears to be comfortable at rest. HEENT: Head is atraumatic, normocephalic. Pupils equal, round. Sclerae is anicteric. NECK: Supple. No JVD. . LUNGS: Diminished in the bases. No intercostal retractions. HEART: Regular rate and rhythm. No murmur. ABDOMEN: Soft No tenderness. EXTREMITIES: Trace bilateral pedal edema. No calf tenderness. NEUROLOGICAL: Patient is awake, alert and oriented x3. - Labs CBC & Chem 7: 11/19/22 09:04 11/19/22 09:04 Labs: Abnormal Lab Results - Last 24 Hours (Table) 11/18/22 11/18/22 11/19/22 Range/Units 16:45 20:46 09:04 RBC 3.95 L (4.30-5.90) m/uL Hgb 10.5 L (13.0-17.5) gm/dL Hct 34.5 L (39.0-53.0) % MCHC 30.6 L (31.0-37.0) g/dL Carbon Dioxide (22-30) mmol/L BUN (9-20) mg/dL Creatinine (0.66-1.25) mg/dL Glucose (74-99) mg/dL POC Glucose (mg/dL) 129 H 121 H (70-110) mg/dL 11/19/22 11/19/22 Range/Units 09:04 11:52 RBC (4.30-5.90) m/uL Hgb (13.0-17.5) gm/dL Hct (39.0-53.0) % MCHC (31.0-37.0) g/dL Carbon Dioxide 33 H (22-30) mmol/L BUN 21 H (9-20) mg/dL Creatinine 1.29 H (0.66-1.25) mg/dL Glucose 116 H (74-99) mg/dL POC Glucose (mg/dL) 124 H (70-110) mg/dL Assessment and Plan Assessment: Acute on chronic systolic heart failure Coronary artery disease History of mitral valve surgery Paroxysmal atrial fibrillation not on anticoagulation unknown reason for this History of pacemaker implantation Diabetes mellitus type 2 COPD Plan: Resume patient's home cardiac medications Continue patient on Lasix 20 mg IV every 8 hours Monitor I&O, daily weights, I's and renal function Obtain patient records from [facility]. Obtain 2-D echocardiogram and Doppler study to assess cardiac structure and function
[2022-11-19 20:08] LABS: Glucose,Whole Blood 153 mg/dL (70-110)
[2022-11-20 05:50] LABS: Glucose,Whole Blood 99 mg/dL (70-110)
[2022-11-20] MEDS: INSULIN ASPART (NovoLOG) 100 UNIT/ML VIAL SQ SCH ×2 (06:24→13:06)
[2022-11-20] MEDS ORDERED: FUROSEMIDE 20 MG TAB PO SCH (09:00)
[2022-11-20 09:14] VITALS: BP 125/60; PULSE 61; RESP 18; TEMP 97.5
[2022-11-20] MEDS: amLODIPine 5 MG TAB PO SCH (09:15)
[2022-11-20] MEDS: ASPIRIN 81 MG PO SCH (09:15)
[2022-11-20] MEDS: POTASSIUM CHLORIDE ER 20 MEQ TAB.ER PO SCH (09:15)
[2022-11-20] MEDS: GABAPENTIN 300 MG CAP PO SCH (09:15)
[2022-11-20] MEDS: NITROGLYCERIN EXTENDED RELEASE 2.5 MG CAPSULE.ER PO SCH (09:15)
[2022-11-20] MEDS: MULTIVITAMINS, THERA 1 EACH TAB PO SCH (09:15)
[2022-11-20] MEDS: GLIMEPIRIDE 1 MG TAB PO SCH (09:15)
[2022-11-20] MEDS: LOSARTAN 50 MG TAB PO SCH (09:15)
[2022-11-20] MEDS: FLUoxetine HCL 20 MG CAP PO SCH (09:15)
[2022-11-20] MEDS: LORATADINE 10 MG TAB PO SCH (09:15)
[2022-11-20] MEDS: METOPROLOL SUCCINATE (ER) 100 MG TAB.ER.24H PO SCH (09:15)
[2022-11-20] MEDS: TAMSULOSIN 0.4 MG CAP.ER.24H PO SCH (09:15)
[2022-11-20] MEDS: NYSTATIN 100,000 UNIT/GM POWD 15 GM TOPICAL SCH (09:16)
[2022-11-20 09:58] LABS: HCT 30.7 % (39.0-53.0); HGB 9.6 gm/dL (13.0-17.5); Hypochromasia Marked; MCH 26.8 pg (25.0-35.0); MCHC 31.4 g/dL (31.0-37.0); MCV 85.4 fL (80.0-100.0); Mean Platelet Volume 8.2; Platelet Count 186 k/uL (150-450); RDW 15.4 % (11.5-15.5); WBC 5.1 k/uL (3.8-10.6)
[2022-11-20 10:09] LABS: African American GFR (CKD) 65 (>60 ml/min/1.73 sqM); Anion Gap 9 mmol/L; Blood Urea Nitrogen 20 mg/dL (9-20); Calcium 8.9 mg/dL (8.4-10.2); Carbon Dioxide 28 mmol/L (22-30); Chloride 102 mmol/L (98-107); Glucose 116 mg/dL (74-99); Non-African American GFR(CKD) 56 (>60 ml/min/1.73 sqM); Potassium 4.2 mmol/L (3.5-5.1); Sodium 139 mmol/L (137-145)
--- NOTE | 2022-11-20 10:28 | P.PN ---
Subjective HISTORY OF PRESENT ILLNESS: This is an 86-year-old male follows with a floor coverings salesperson at [facility], Dr. Quintero, with past medical history of hypertension, hyperlipidemia, history of coronary artery disease with stent of the LAD, open mitral valve surgery in -details are not available, chronic heart failure, paroxysmal atrial fibrillation, pacemaker, diabetes mellitus type 2, COPD. Details of his cardiac history are not known at this time. Patient presented to [facility] with complaints of difficulty breathing and nosebleed. Patient had packing done of the nosebleed at [facility] and this subsequently subsided. Creatinine was 1.38, magnesium 1.8 and potassium 3.5. Troponin negative 1 and proBNP 4843. Due to heart failure, patient had requested transfer to [facility] although because ENT was not available there, patient was transferred to [facility]. We have been asked to evaluate the patient for acute pulmonary edema. Patient states he has had episodes of the same in the past but not as bad. Patient was started on IV Lasix received 20 mg at [facility] prior to transfer. He states he feels he urinated quite a bit overnight and shortness of breath is improved. Patient had a recent hospitalization at [facility] which time he was treated for acute systolic heart failure and non-ST elevated [place] status post cardiac catheterization finding total occlusion of the mid LAD. Home cardiac medications: Aspirin 81 mg daily, Lasix 40 mg in the morning 20 oh grams in the evening, hydralazine 50 mg daily, losartan 50 mg daily, Toprol-XL 100 mg twice daily, Nitro-Bid 2.5 mg twice daily, potassium chloride 20 mEq twice daily Patient underwent cardiac catheterization 09/[address] 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 Dominant RCA and a nondominant circumflex and left main are free of significant disease. Echocardiogram performed August 2022 and [facility] revealed EF 30- 35%, RVSP 50-55 mmHg. 11/19 Patient is seen today in follow-up. He states he is feeling much better but feels he has not been urinating very much with the IV Lasix which is 20 mg every 8 hours. Weight appears to be down 4 kg. Yesterday, patient had a negative fluid balance of 500 ML's. A repeat blood work reveals potassium 3.9, BUN 21 creatinine 1.29, hemoglobin 10.5. Echocardiogram reveals concentric left ventricular hypertrophy with moderate LV systolic dysfunction with EF 35%, moderate pulmonary hypertension, mild mitral and aortic regurgitation. 11/20/2022 Patient examined this morning at the bedside. Patient denies chest pain or pressure. He denies shortness of breath. He has been transitioned to oral Lasix. Patient's vital signs are stable. PHYSICAL EXAM: VITAL SIGNS: Reviewed. GENERAL: Well-developed in no acute distress. NECK: Supple. No JVD or thyromegaly LUNGS: Respirations even and unlabored. Lungs essentially clear to auscultation bilaterally. HEART: Regular rate and rhythm. S1 and S2 heard. EXTREMITIES: Normal range of motion. No clubbing or cyanosis. Peripheral pulses intact. No lower extremity edema ASSESSMENT: Epistaxis Acute on chronic heart failure with reduced ejection fraction Coronary artery disease with previous PCI of the LAD History of mitral valve surgery, patient reports mitral valve replacement, details unknown at this time Paroxysmal atrial fibrillation History of permanent pacemaker implantation Hypertension Hyperlipidemia Diabetes COPD PLAN: Continue current cardiac medications Patient has been transitioned to oral Lasix Recommend anticoagulation secondary to history of atrial fibrillation. However patient presented to the hospital with a nosebleed. We will hold on initiating anticoagulation at this time and patient may be reevaluated on an outpatient basis Patient is stable for discharge home today from a cardiac standpoint Patient is to follow up post discharge with his primary floor coverings salesperson Nurse practitioner note has been reviewed by physician. Signing provider agrees with the documented findings, assessment, and plan of care. Objective - Vital Signs Vital signs: Vital Signs Temp 97.5 F L 11/20/22 09:12 Pulse 61 11/20/22 09:12 Resp 18 11/20/22 09:12 BP 125/60 11/20/22 09:12 Pulse Ox 99 11/20/22 09:12 FiO2 Intake & Output 11/19/22 11/20/22 11/20/22 18:59 06:59 18:59 Intake Total 900 180 Output Total 225 Balance 675 180 Weight 92.3 kg Intake: Oral 900 180 Output: Urine 225 Other: Voiding Method Toilet Toilet Urinal Urinal # Voids 2 0 # Bowel Movements 0 - Labs CBC & Chem 7: 11/20/22 09:32 11/20/22 09:32 Labs: Abnormal Lab Results - Last 24 Hours (Table) 11/19/22 11/19/22 11/19/22 Range/Units 11:52 16:20 20:07 RBC (4.30-5.90) m/uL Hgb (13.0-17.5) gm/dL Hct (39.0-53.0) % Glucose (74-99) mg/dL POC Glucose (mg/dL) 124 H 124 H 153 H (70-110) mg/dL 11/20/22 11/20/22 Range/Units 09:32 09:32 RBC 3.60 L (4.30-5.90) m/uL Hgb 9.6 L (13.0-17.5) gm/dL Hct 30.7 L (39.0-53.0) % Glucose 116 H (74-99) mg/dL POC Glucose (mg/dL) (70-110) mg/dL
[2022-11-20 11:40] LABS: Glucose,Whole Blood 121 mg/dL (70-110)
[2022-11-20] MEDS: VIT A,C & E-LUTEIN-MINERALS 1 EACH TAB PO SCH (13:06)
--- NOTE | 2022-11-20 22:05 | P.DS ---
Providers Date of admission: 11/20/22 08:32 Expected date of discharge: 11/20/22 Attending physician: Juan Landry Consults: 11/17/22 14:03 Consult Physician Routine Consulting Provider: [facility] Consult Reason/Comments: Acute pulmonary edema Do you want consulting provider notified?: Yes Primary care physician: Cosme [facility] Course: Chief Complaint: Epistaxis This is a pleasant 86-year-old patient, but chronic stable medical conditions include CAD, CHF, diabetes, GERD, hypertension, hyperlipidemia, gout, neuropathy, permanent pacemaker. Patient is very hard of hearing. Patient was transferred here from [facility]. As per the ER notes she was transferred here for CHF and severe nosebleed. Nasal packing had been done at other hospital and he was not bleeding when he arrived here. In fact his packing fell out. Patient himself states his breathing is not a problem. And at this just like his baseline. Apparently was given some Lasix Arlet been coming here. No fever no chills no cough. Does use a walker at baseline. 11/19/2022 Patient is seen and evaluated with family at bedside; reports feeling improved overall Vital signs are reviewed and remained stable Blood work reveals sodium of 142, potassium 3.9, BUN/creatinine of 21/1.29; patient remains on IV Lasix and continues to have negative fluid balance; continues to lose weight Echocardiogram is completed and reveals concentric LVH and moderate LV systolic dysfunction with EF of 35% and pulmonary hypertension with mild mitral and aortic regurgitation -- Cardiology recommending to transition to oral Lasix -- Await records from [facility] 11/20/2022: Sitting up in a chair. Comfortable. Breathing is stable. Cleared by currently for discharge. Discussed with the patient and at the bedside. Several questions answered. Told to use topical Vaseline in the nose. Also instructed her about possible epistaxis if occurs. 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 In [place] town trip. Patient does wear oxygen at home. Discussion and discharge planning more than 35 minutes Past medical history to include: CAD, CHF, diabetes, GERD, hard of hearing, hypertension, hyperlipidemia, gout, neuropathy, esophageal spasm, permanent pacemaker Social history: . No smoking or alcohol. Does use a walker. Physical examination: VITAL SIGNS: 97.5, 61, 18, 125/60, 99% on 2 L GENERAL: Up in a chair, comfortable EYES: Pupils equal. Conjunctiva normal. HEENT: External appearance of nose and ears normal, oral cavity grossly normal hard of hearing. NECK: JVD not raised; masses not palpable. HEART: First and second heart sounds are normal; no edema. LUNGS: Respiratory rate normal; decreased breath sounds. ABDOMEN: Soft, nontender, liver spleen not palpable, no masses palpable. PSYCH: AO 3, mood affect normal MUSCULOSKELETAL:No Clubbing/cyanosis;muscles-grossly intact. OA INVESTIGATIONS, November 20: White count 5.1 hemoglobin 9.6 platelets 186 potassium 4.2 creatinine 1.18 2-D echocardiogram: EF 30-35%. Prosthetic tricuspid valve. Aortic valve sclerosis. Mild to moderate pulmonic regurgitation. Assessment and plan: -Acute on chronic congestive heart failure from systolic dysfunction. EF 30- 35%. Received IV Lasix. Discharged on Lasix 60 mg a day. Losartan. Toprol-XL. -Severe epistaxis. Patient received a nasal packing at [facility]. Packing fell out before the patient arrived here. Resolved. -Depression Prozac -Chronic hypoxic respiratory failure, uses 2 dose of oxygen at home -Peripheral neuropathy Neurontin -Diabetes mellitus type 2 and oral hypoglycemic Amaryl. Follow Accu-Cheks -Essential hypertension Toprol-XL Losartan. 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 Disposition: Home Labs: BMP: 5 days Plan - Discharge Summary Discharge Rx Participant: No New Discharge Prescriptions: New amLODIPine [Norvasc] 5 mg PO DAILY #30 tab Continue Vit C/E/Zn/Coppr/Lutein/Zeaxan [Preservision Areds 2 Softgel] 1 cap PO BID Tamsulosin HCl [Flomax] 0.4 mg PO DAILY Losartan Potassium 50 mg PO DAILY FLUoxetine HCL [PROzac] 40 mg PO DAILY Nitroglycerin Extended Release [Nitro-Bid] 2.5 mg PO BID Multivit-Min/FA/Lycopen/Lutein [Centrum Silver Tablet] 1 tab PO DAILY Fexofenadine HCl [Yumi Allergy] 180 mg PO DAILY Biotin [Biotin Disolve] 10,000 mcg PO DAILY Aspirin EC [Ecotrin Low Dose] 81 mg PO DAILY Metoprolol Succinate (ER) [Toprol XL] 100 mg PO BID Glimepiride [Amaryl] 1 mg PO DAILY Gabapentin [Neurontin] 300 mg PO TID Potassium Chloride ER [K-Dur 20] 20 meq PO BID Clotrimazole Teja [Mycelex Teja] 10 mg PO 5XD Changed Furosemide [Lasix] 60 mg PO HS #90 tab Discontinued hydrALAZINE HCL [Apresoline] 50 mg PO DAILY Furosemide [Lasix] 40 mg PO DAILY Meclizine [Antivert] 12.5 mg PO BID PRN PRN Reason: Vertigo Discharge Medication List Aspirin EC [Ecotrin Low Dose] 81 mg PO DAILY 11/17/22 [History] Biotin [Biotin Disolve] 10,000 mcg PO DAILY 11/17/22 [History] Clotrimazole Teja [Mycelex Teja] 10 mg PO 5XD 11/17/22 [History] FLUoxetine HCL [PROzac] 40 mg PO DAILY 11/17/22 [History] Fexofenadine HCl [Yumi Allergy] 180 mg PO DAILY 11/17/22 [History] Gabapentin [Neurontin] 300 mg PO TID 11/17/22 [History] Glimepiride [Amaryl] 1 mg PO DAILY 11/17/22 [History] Losartan Potassium 50 mg PO DAILY 11/17/22 [History] Metoprolol Succinate (ER) [Toprol XL] 100 mg PO BID 11/17/22 [History] Multivit-Min/FA/Lycopen/Lutein [Centrum Silver Tablet] 1 tab PO DAILY 11/17/22 [History] Nitroglycerin Extended Release [Nitro-Bid] 2.5 mg PO BID 11/17/22 [History] Potassium Chloride ER [K-Dur 20] 20 meq PO BID 11/17/22 [History] Tamsulosin HCl [Flomax] 0.4 mg PO DAILY 11/17/22 [History] Vit C/E/Zn/Coppr/Lutein/Zeaxan [Preservision Areds 2 Softgel] 1 cap PO BID 11/17/22 [History] Furosemide [Lasix] 60 mg PO HS #90 tab 11/20/22 [Rx] amLODIPine [Norvasc] 5 mg PO DAILY #30 tab 11/20/22 [Rx] Follow up Appointment(s)/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
== END 2022-11-20 13:25 | disposition home or self-care (01) | DRG 291 ==
LOC: EC 13:38 → 3SCARD 14:04 → OBSVTOIN 11-20 08:32
PROVIDERS: ADMIT Hospitalist; ATTEND Hospitalist
DX: I11.0 Hypertensive heart disease with heart failure (principal); I50.23 Acute on chronic systolic (congestive) heart failure; R04.0 Epistaxis; I08.0 Rheumatic disorders of both mitral and aortic valves; I25.10 Atherosclerotic heart disease of native coronary artery without angina pectoris; I25.2 Old myocardial infarction; I27.20 Pulmonary hypertension, unspecified; I48.0 Paroxysmal atrial fibrillation; H91.90 Unspecified hearing loss, unspecified ear; F41.9 Anxiety disorder, unspecified; F32.A Depression, unspecified; E78.5 Hyperlipidemia, unspecified; M10.9 Gout, unspecified; G62.9 Polyneuropathy, unspecified; K21.9 Gastro-esophageal reflux disease without esophagitis; E11.9 Type 2 diabetes mellitus without complications; N40.0 Benign prostatic hyperplasia without lower urinary tract symptoms; Z79.82 Long term (current) use of aspirin; Z79.84 Long term (current) use of oral hypoglycemic drugs; Z79.899 Other long term (current) drug therapy; Z80.1 Family history of malignant neoplasm of trachea, bronchus and lung; Z98.61 Coronary angioplasty status; Z80.3 Family history of malignant neoplasm of breast; Z88.1 Allergy status to other antibiotic agents; Z88.0 Allergy status to penicillin; Z95.0 Presence of cardiac pacemaker; Z88.2 Allergy status to sulfonamides
CPT/HCPCS: 71046; 80048; 80053; 82272; 83880; 85025; 85027; 93306; 94760; 96374; 96375; 99285

== ENCOUNTER 2024-06-11 16:29 | Inpatient (IN) | payer MEDICARE ==
--- NOTE | 2024-06-11 17:04 | ED ---
General Adult HPI - General Chief complaint: Chest Pain Stated complaint: High BP Time Seen by Provider: 06/11/24 16:36 Source: EMS Mode of arrival: EMS - History of Present Illness Initial comments: Dictation was produced using [employer] dictation software. please excuse any grammatical, word or spelling errors. Chief Complaint: 88-year-old male with chest pain History of Present Illness: Patient is an 88-year-old male with lower substernal and epigastric pain. States that pressure radiates to his left shoulder. Patient was seen by EMS. He prior to EMS arrival took into his nitro. Patient was given nitro and aspirin by EMS. Patient is considered to have pain. EMS wa s concerned that perhaps this was an anxiety event. The ROS documented in this emergency department record has been reviewed and confirmed by me. Those systems with pertinent positive or negative responses have been documented in the HPI. All other systems are other negative and/or noncontributory. - Related Data Home Medications Medication Instructions Recorded Confirmed Aspirin EC [Ecotrin Low Dose] 81 mg PO DAILY 11/17/22 06/11/24 FLUoxetine HCL [PROzac] 40 mg PO DAILY 11/17/22 06/11/24 Fexofenadine HCl [Yumi Allergy] 180 mg PO DAILY 11/17/22 06/11/24 Gabapentin [Neurontin] 300 mg PO TID 11/17/22 06/11/24 Glimepiride [Amaryl] 1 mg PO DAILY 11/17/22 06/11/24 Losartan Potassium 100 mg PO DAILY 11/17/22 06/11/24 Metoprolol Succinate (ER) [Toprol 100 mg PO BID 11/17/22 06/11/24 XL] Multivit-Min/FA/Lycopen/Lutein 1 tab PO DAILY 11/17/22 06/11/24 [Centrum Silver Tablet] Nitroglycerin Extended Release 2.5 mg PO BID 11/17/22 06/11/24 [Nitro-Bid] Nitroglycerin Sl Tabs [Nitrostat] 0.4 mg SUBLINGUAL Q5M PRN 06/11/24 06/11/24 Spironolactone [Aldactone] 12.5 mg PO DAILY 06/11/24 06/11/24 hydrALAZINE HCL [Apresoline] 100 mg PO DAILY 06/11/24 06/11/24 Allergies Allergy/AdvReac Type Severity Reaction Status Date / Time cephalexin [From Keflex] Allergy Unknown Verified 06/11/24 19:20 codeine Allergy Unknown Verified 06/11/24 19:20 Mushroom Allergy Unknown Verified 06/11/24 19:20 Penicillins Allergy Unknown Verified 06/11/24 19:20 prochlorperazine Allergy Unknown Verified 06/11/24 19:20 [From Compazine] shellfish derived [Shellfish] Allergy Rash/Hives Verified 06/11/24 19:20 Sulfa (Sulfonamide Allergy Unknown Verified 06/11/24 19:20 Antibiotics) organ meat AdvReac Rash/Hives Uncoded 06/11/24 16:38 Review of Systems ROS Statement: Those systems with pertinent positive or pertinent negative responses have been documented in the HPI. ROS Other: All systems not noted in ROS Statement are negative. Past Medical History Past Medical History: Coronary Artery Disease (CAD), Chest Pain / Angina, Heart Failure, Diabetes Mellitus, GERD/Reflux, Hearing Disorder / Deafness, Hyperlipidemia, Hypertension Additional Past Medical History / Comment(s): gout, neuropathy, esophageal spasms History of Any Multi-Drug Resistant Organisms: None Reported Past Surgical History: Pacemaker Additional Past Surgical History / Comment(s): catract Past Anesthesia/Blood Transfusion Reactions: No Reported Reaction Type of Cardiac Device: Permanent Pacemaker Device Placement Date:: 06/11/2021 Past Psychological History: No Psychological Hx Reported Smoking Status: Never smoker Past Alcohol Use History: None Reported Past Drug Use History: None Reported - Past Family History Father Family Medical History: Cancer Additional Family Medical History / Comment(s): lung cancer Mother Family Medical History: Cancer Additional Family Medical History / Comment(s): breast cancer General Exam - General Exam Comments Initial Comments: PHYSICAL EXAM: General Impression: Alert and oriented x3, not in acute distress HEENT: Normocephalic atraumatic, extra-ocular movements intact, pupils equal and reactive to light bilaterally, mucous membranes moist. Cardiovascular: Heart regular rate and rhythm Chest: Able to complete full sentences, no retractions, no tachypnea Abdomen: abdomen soft, non-tender, non-distended, no organomegaly Musculoskeletal: Pulses present and equal in all extremities, no peripheral edema Motor: no focal deficits noted Neurological: CN II-XII grossly intact, no focal motor or sensory deficits noted Skin: Intact with no visualized rashes Psych: Anxious Course Vital Signs 06/11/24 06/11/24 16:32 18:19 Temperature 97.9 F Pulse Rate 69 80 Respiratory 22 18 Rate Blood Pressure 115/48 119/66 O2 Sat by Pulse 97 94 L Oximetry EKG Findings - EKG Comments: EKG Findings:: My EKG interpretation: Ventricular rate 85, ventricular paced rhythm, QRS 10 76, QTc 509. No NH prolongation, no QTC prolongation, no ST or T- wave changes noted. Similar to EKG from November 18, 2022 overall, this EKG is unremarkable Medical Decision Making - Medical Decision Making Was pt. sent in by a medical professional or institution (, PA, ELECT[employer] EQUIPMENT REPAIR[employer], urgent care, hospital, or snf...) When possible be specific @ -No Did you speak to anyone other than the patient for history (EMS, parent, family, police, friend...)? What history was obtained from this source @ -No Did you review nursing and triage notes (agree or disagree)? Why? @ -I reviewed and agree with nursing and triage notes Were old charts reviewed (outside hosp., previous admission, EMS record, old EKG, old radiological studies, urgent care reports/EKG's, snf records)? Report findings @ -No old charts were reviewed Differential Diagnosis (chest pain, altered mental status, abdominal pain women, abdominal pain men, vaginal bleeding, musculoskeletal, weakness, fever, dyspnea, syncope, headache, dizziness, GI bleed, back pain, seizure, CVA, palpatations, mental health)? @ -Differential Chest Pain: Stable Angina, Unstable Angina, STEMI, NSTEMI Aortic Dissection, Pneumothorax, Musculoskeletal, Esophageal Spasm GERD, Cholecystitis, Pancreatitis, Zoster, this is not meant to be an all-inclusive list. EKG interpreted by me (3pts min.). @ -See above X-rays interpreted by me (1pt min.). @ -Chest x-ray shows heart failure CT interpreted by me (1pt min.). @ -None done U/S interpreted by me (1pt. min.). @ -None done What testing was considered but not performed or refused? (CT, X-rays, U/S, labs)? Why? @ -None What meds were considered but not given or refused? Why? @ -None Was smoking cessation discussed for >3mins.? @ -No Were there social determinants of health that impacted care today? How? (Homelessness, low income, unemployed, alcoholism, drug addiction, transportation, low edu. Level, literacy, decrease access to med. care, long-term, rehab)? @ -No Was there de-escalation of care discussed even if they declined (Discuss DNR or withdrawal of care, Hospice)? DNR status @ -No What co-morbidities impacted this encounter? (DM, HTN, Smoking, COPD, CAD, C ancer, CVA, ARF, Chemo, Hep., AIDS, mental health diagnosis, sleep apnea, morbid obesity)? @ -Hypertension, angina, diabetes Was patient admitted / discharged? Hospital course, mention meds given and route, prescriptions, significant lab abnormalities, going to OR and other pertinent info. @ -88-year-old male presents to the emergency department for chest pain. Symptoms concerning for acute coronary syndrome. Vital signs stable. Laboratory evaluation obtained. Labs within acceptable limits. EKG does not show any signs of ischemia or infarction. Patient received aspirin nitro by prehospital providers. Patient be admitted with consultation to cardiology. Case discussed with hospitalist for admission Did you discuss the management of the patient with other professionals (professionals i.e. , PA, ELECT[employer] REPAIRMEN, lab, RT, psych nurse, social media specialist, inspector heating and refrigeration, teacher, chief administrative officer, field case manager)? Give summary @ -See above Was critical care preformed (if so, how long)? @ -No Undiagnosed new problem with uncertain prognosis? @ -No Drug Therapy requiring intensive monitoring for toxicity (Heparin, Nitro, Insulin, Cardizem)? @ -No Were any procedures done? @ -No Diagnosis/symptom? Acute, or Chronic, or Acute on Chronic? Uncomplicated (without systemic symptoms) or Complicated (systemic symptoms)? @ -Acute coronary syndrome Side effects of treatment? @ -No Exacerbation, Progression, or Severe Exacerbation? @ -No Poses a threat to life or bodily function? How? (Chest pain, [place], [place], pneumonia, PE, COPD, DKA, ARF, appy, cholecystitis, CVA, Diverticulitis, Homicidal, Suicidal, threat to staff... and all critical care pts) @ -yes - Lab Data Result diagrams: 06/11/24 17:10 06/11/24 17:10 Lab Results 06/11/24 06/11/24 06/11/24 Range/Units 17:00 17:10 17:10 WBC 9.7 (3.8-10.6) k/uL RBC 5.48 (4.30-5.90) m/uL Hgb 15.9 (13.0-17.5) gm/dL Hct 48.5 (39.0-53.0) % MCV 88.5 (80.0-100.0) fL MCH 28.9 (25.0-35.0) pg MCHC 32.7 (31.0-37.0) g/dL RDW 14.1 (11.5-15.5) % Plt Count 180 (150-450) k/uL MPV 7.5 Neutrophils % 76 % Lymphocytes % 13 % Monocytes % 7 % Eosinophils % 2 % Basophils % 0 % Neutrophils # 7.4 (1.3-7.7) k/uL Lymphocytes # 1.3 (1.0-4.8) k/uL Monocytes # 0.6 (0-1.0) k/uL Eosinophils # 0.2 (0-0.7) k/uL Basophils # 0.0 (0-0.2) k/uL PT 12.6 H (10.0-12.5) sec INR 1.2 H (<1.2) APTT 25.2 (22.0-30.0) sec Sodium (137-145) mmol/L Potassium (3.5-5.1) mmol/L Chloride (98-107) mmol/L Carbon Dioxide (22-30) mmol/L Anion Gap mmol/L BUN (9-20) mg/dL Creatinine (0.66-1.25) mg/dL Est GFR (CKD-EPI)AfAm (>60 ml/min/1.73 sqM) Est GFR (CKD-EPI)NonAf (>60 ml/min/1.73 sqM) Glucose (74-99) mg/dL POC Glucose (mg/dL) 140 H (70-110) mg/dL POC Glu E Commerce Developer ID Amy López Calcium (8.4-10.2) mg/dL Magnesium (1.6-2.3) mg/dL Total Bilirubin (0.2-1.3) mg/dL AST (17-59) U/L ALT (4-49) U/L Alkaline Phosphatase (38-126) U/L Troponin I (0.000-0.034) ng/mL Total Protein (6.3-8.2) g/dL Albumin (3.5-5.0) g/dL 06/11/24 06/11/24 Range/Units 17:10 17:10 WBC (3.8-10.6) k/uL RBC (4.30-5.90) m/uL Hgb (13.0-17.5) gm/dL Hct (39.0-53.0) % MCV (80.0-100.0) fL MCH (25.0-35.0) pg MCHC (31.0-37.0) g/dL RDW (11.5-15.5) % Plt Count (150-450) k/uL MPV Neutrophils % % Lymphocytes % % Monocytes % % Eosinophils % % Basophils % % Neutrophils # (1.3-7.7) k/uL Lymphocytes # (1.0-4.8) k/uL Monocytes # (0-1.0) k/uL Eosinophils # (0-0.7) k/uL Basophils # (0-0.2) k/uL PT (10.0-12.5) sec INR (<1.2) APTT (22.0-30.0) sec Sodium 139 (137-145) mmol/L Potassium 3.5 (3.5-5.1) mmol/L Chloride 107 (98-107) mmol/L Carbon Dioxide 22 (22-30) mmol/L Anion Gap 10 mmol/L BUN 22 H (9-20) mg/dL Creatinine 1.37 H (0.66-1.25) mg/dL Est GFR (CKD-EPI)AfAm 54 (>60 ml/min/1.73 sqM) Est GFR (CKD-EPI)NonAf 46 (>60 ml/min/1.73 sqM) Glucose 144 H (74-99) mg/dL POC Glucose (mg/dL) (70-110) mg/dL POC Glu E Commerce Developer ID Calcium 9.5 (8.4-10.2) mg/dL Magnesium 2.0 (1.6-2.3) mg/dL Total Bilirubin 1.1 (0.2-1.3) mg/dL AST 21 (17-59) U/L ALT 20 (4-49) U/L Alkaline Phosphatase 63 (38-126) U/L Troponin I 0.031 (0.000-0.034) ng/mL Total Protein 6.0 L (6.3-8.2) g/dL Albumin 3.6 (3.5-5.0) g/dL Disposition Clinical Impression: ACS (acute coronary syndrome) Disposition: ADMITTED IP TO THIS [facility] Condition: Fair Referrals: None,Stated [Primary Care Provider] - 1-2 days Decision Time: 19:53
[2024-06-11 17:09] LABS: Glucose,Whole Blood 140 mg/dL (70-110)
[2024-06-11 17:21] LABS: Basophils % (A) 0 %; Eosinophils # (A) 0.2 k/uL (0-0.7); Eosinophils % (A) 2 %; HCT 48.5 % (39.0-53.0); HGB 15.9 gm/dL (13.0-17.5); Lymphocytes # (A) 1.3 k/uL (1.0-4.8); Lymphocytes % (A) 13 %; MCH 28.9 pg (25.0-35.0); MCHC 32.7 g/dL (31.0-37.0); MCV 88.5 fL (80.0-100.0); Mean Platelet Volume 7.5; Monocytes # (A) 0.6 k/uL (0-1.0); Monocytes % (A) 7 %; Neutrophils # (A) 7.4 k/uL (1.3-7.7); Neutrophils % (A) 76 %; Platelet Count 180 k/uL (150-450); RBC 5.48 m/uL (4.30-5.90); RDW 14.1 % (11.5-15.5); WBC 9.7 k/uL (3.8-10.6)
[2024-06-11 17:28] LABS: INR 1.2 (<1.2); Partial Thromboplastin Time 25.2 sec (22.0-30.0); Prothrombin Time 12.6 sec (10.0-12.5)
[2024-06-11 17:40] LABS: ALT 20 U/L (4-49); AST 21 U/L (17-59); African American GFR (CKD) 54 (>60 ml/min/1.73 sqM); Albumin 3.6 g/dL (3.5-5.0); Alkaline Phosphatase 63 U/L (38-126); Anion Gap 10 mmol/L; Blood Urea Nitrogen 22 mg/dL (9-20); Calcium 9.5 mg/dL (8.4-10.2); Carbon Dioxide 22 mmol/L (22-30); Chloride 107 mmol/L (98-107); Glucose 144 mg/dL (74-99); Non-African American GFR(CKD) 46 (>60 ml/min/1.73 sqM); Potassium 3.5 mmol/L (3.5-5.1); Sodium 139 mmol/L (137-145); Total Bilirubin 1.1 mg/dL (0.2-1.3)
--- NOTE | 2024-06-11 19:00 | XR ---
EXAMINATION TYPE: XR chest 2V DATE OF EXAM: 06/11/2024 6:47 PM COMPARISON: Prior chest x-ray November 18, 2022 CLINICAL INDICATION: Male, 88 years old with history of Chest Pain, TECHNIQUE: Frontal and lateral views of the chest are obtained. FINDINGS: Overlying Sternal wires are redemonstrated. Persistent cardiomegaly with atherosclerotic t horacic aorta. Suspect mild central vascular congestion. No new focal airspace opacity, pleural effus ion, or pneumothorax is seen. The osseous structures are intact. IMPRESSION: Possible CHF exacerbation/fluid overload state. Correlate clinically and with serum BNP isa azevedo. [facility], , 06/11/2024 6:58 PM
[2024-06-11] MEDS ORDERED: HEPARIN SODIUM 1,000 UN/ML (10ML VL) IV PRN (22:17)
[2024-06-11] MEDS: HEPARIN SOD,PORK IN 0.45% NACL 25,000 UNIT in 0.45% NACL 1 250ML.BAG IV SCH (22:37)
[2024-06-11] MEDS: HEPARIN SODIUM 1,000 UN/ML (10ML VL) IV ONE (23:08)
[2024-06-12] MEDS ORDERED: NITROGLYCERIN SL TABS 0.4 MG TAB SUBLINGUAL PRN ×2 (07:58→10:24)
[2024-06-12] MEDS: FLUoxetine HCL 20 MG CAP PO SCH (08:52)
[2024-06-12] MEDS: METOPROLOL SUCCINATE (ER) 100 MG TAB.ER.24H PO SCH (08:53)
[2024-06-12] MEDS: ATORVASTATIN 40 MG TAB PO SCH (08:54)
[2024-06-12] MEDS: hydrALAZINE HCL 50 MG TAB PO SCH (08:54)
[2024-06-12] MEDS: SPIRONOLACTONE 25 MG TAB PO SCH (08:55)
[2024-06-12] MEDS: LOSARTAN 50 MG TAB PO SCH (08:56)
[2024-06-12] MEDS: GABAPENTIN 300 MG CAP PO SCH (09:02)
[2024-06-12] MEDS: ASPIRIN 325 MG TAB PO SCH (09:02)
[2024-06-12] MEDS: FAMOTIDINE 20 MG/2 ML VIAL IV SCH (09:02)
[2024-06-12] MEDS: GLIMEPIRIDE 1 MG TAB PO SCH (09:09)
[2024-06-12] MEDS: NITROGLYCERIN EXTENDED RELEASE 2.5 MG CAPSULE.ER PO SCH (09:10)
--- NOTE | 2024-06-12 09:48 | P.HPIM ---
History of Present Illness This is a pleasant 88 years old male. Presents because of chest pain. Patient states chest pain started yesterday at about 8/10 in the middle of the chest goes across to the right side. [place] like pressure. Associated with dyspnea and some coughing. Yesterday he had diarrhea about once a day but nothing today. No abdominal pain vomiting. No urinary complaint. He has little headache. States was secondary to nitro which was discontinued. As patient does not have chest pain now He denies smoking alcohol or illicit drugs. He is hemodynamically stable and afebrile. Blood pressure slightly on the high side 182/69. Chest x-ray showing possible CHF exacerbation with fluid overload EKG showing electronic ventricular paced rhythm at rate of 76. QTc 466 Echocardiogram from 11/2022: 30 to 35% Review of Systems Review of systems CONSTITUTIONAL: No fever, no malaise, no fatigue. HEENT: No recent visual problems or hearing problems. Denied any sore throat. CARDIOVASCULAR: No orthopnea, PND, no palpitations, no syncope. PULMONARY: No shortness of breath, no cough, no hemoptysis. GASTROINTESTINAL: No diarrhea, no nausea, no vomiting, no abdominal pain. Normoactive bowel sounds. NEUROLOGICAL: No headaches, no weakness, no numbness. HEMATOLOGICAL: Denies any bleeding or petechiae. GENITOURINARY: Denies any burning micturition, frequency, or urgency. MUSCULOSKELETAL/RHEUMATOLOGICAL: Denies any joint pain, swelling, or any muscle pain. ENDOCRINE: Denies any polyuria or polydipsia. Past Medical History Past Medical History: Coronary Artery Disease (CAD), Chest Pain / Angina, Heart Failure, Diabetes Mellitus, GERD/Reflux, Hearing Disorder / Deafness, Hyperlipidemia, Hypertension Additional Past Medical History / Comment(s): gout, neuropathy, esophageal spasms History of Any Multi-Drug Resistant Organisms: None Reported Past Surgical History: Pacemaker Additional Past Surgical History / Comment(s): catract Past Anesthesia/Blood Transfusion Reactions: No Reported Reaction Type of Cardiac Device: Permanent Pacemaker Device Placement Date:: 06/11/2021 Past Psychological History: No Psychological Hx Reported Smoking Status: Never smoker Past Alcohol Use History: None Reported Past Drug Use History: None Reported - Past Family History Father Family Medical History: Cancer Additional Family Medical History / Comment(s): lung cancer Mother Family Medical History: Cancer Additional Family Medical History / Comment(s): breast cancer Medications and Allergies Home Medications Medication Instructions Recorded Confirmed Type Aspirin EC [Ecotrin Low Dose] 81 mg PO DAILY 11/17/22 06/11/24 History FLUoxetine HCL [PROzac] 40 mg PO DAILY 11/17/22 06/11/24 History Fexofenadine HCl [Yumi Allergy] 180 mg PO DAILY 11/17/22 06/11/24 History Gabapentin [Neurontin] 300 mg PO TID 11/17/22 06/11/24 History Glimepiride [Amaryl] 1 mg PO DAILY 11/17/22 06/11/24 History Losartan Potassium 100 mg PO DAILY 11/17/22 06/11/24 History Metoprolol Succinate (ER) [Toprol 100 mg PO BID 11/17/22 06/11/24 History XL] Multivit-Min/FA/Lycopen/Lutein 1 tab PO DAILY 11/17/22 06/11/24 History [Centrum Silver Tablet] Nitroglycerin Extended Release 2.5 mg PO BID 11/17/22 06/11/24 History [Nitro-Bid] Nitroglycerin Sl Tabs [Nitrostat] 0.4 mg SUBLINGUAL Q5M PRN 06/11/24 06/11/24 History Spironolactone [Aldactone] 12.5 mg PO DAILY 06/11/24 06/11/24 History hydrALAZINE HCL [Apresoline] 100 mg PO DAILY 06/11/24 06/11/24 History Allergies Allergy/AdvReac Type Severity Reaction Status Date / Time cephalexin [From Keflex] Allergy Unknown Verified 06/11/24 19:20 codeine Allergy Unknown Verified 06/11/24 19:20 Mushroom Allergy Unknown Verified 06/11/24 19:20 Penicillins Allergy Unknown Verified 06/11/24 19:20 prochlorperazine Allergy Unknown Verified 06/11/24 19:20 [From Compazine] shellfish derived [Shellfish] Allergy Rash/Hives Verified 06/11/24 19:20 Sulfa (Sulfonamide Allergy Unknown Verified 06/11/24 19:20 Antibiotics) organ meat AdvReac Rash/Hives Uncoded 06/11/24 16:38 Physical Exam Vitals: Vital Signs Temp Pulse Resp BP Pulse Ox 06/12/24 05:23 63 18 182/69 95 06/12/24 04:00 67 20 171/75 96 06/12/24 03:00 64 16 183/74 97 06/12/24 02:00 66 18 175/81 96 06/11/24 23:33 75 16 161/74 93 L 06/11/24 21:03 74 18 122/66 90 L 06/11/24 18:19 80 18 119/66 94 L 06/11/24 16:32 97.9 F 69 22 115/48 97 Intake and Output 06/11/24 06/12/24 06/12/24 22:59 06:59 14:59 Other: Weight 96.162 kg GENERAL: The patient is alert and oriented x3, not in any acute distress. Well developed, well nourished. HEENT: Pupils are round and equally reacting to light. EOMI. No scleral icterus. No conjunctival pallor. Normocephalic, atraumatic. No pharyngeal erythema. No thyromegaly. CARDIOVASCULAR: S1 and S2 present. No murmurs, rubs, or gallops. PULMONARY: Chest is clear to auscultation, no wheezing , no crackles. ABDOMEN: Soft, nontender, nondistended, normoactive bowel sounds. No palpable organomegaly. MUSCULOSKELETAL: No joint swelling or deformity. EXTREMITIES: No cyanosis, clubbing, or pedal edema. NEUROLOGICAL: Gross neurological examination did not reveal any focal deficits. SKIN: No rashes. no petechiae. Results CBC & Chem 7: 06/11/24 17:10 06/11/24 17:10 Labs: Abnormal Lab Results - Last 24 Hours (Table) 06/11/24 06/11/24 06/11/24 Range/Units 17:00 17:10 17:10 PT 12.6 H (10.0-12.5) sec INR 1.2 H (<1.2) APTT (22.0-30.0) sec BUN 22 H (9-20) mg/dL Creatinine 1.37 H (0.66-1.25) mg/dL Glucose 144 H (74-99) mg/dL POC Glucose (mg/dL) 140 H (70-110) mg/dL Troponin I (0.000-0.034) ng/mL Total Protein 6.0 L (6.3-8.2) g/dL 06/11/24 06/11/24 06/12/24 Range/Units 20:57 23:15 05:04 PT (10.0-12.5) sec INR (<1.2) APTT 69.0 H (22.0-30.0) sec BUN (9-20) mg/dL Creatinine (0.66-1.25) mg/dL Glucose (74-99) mg/dL POC Glucose (mg/dL) (70-110) mg/dL Troponin I 0.097 H* 0.109 H* (0.000-0.034) ng/mL Total Protein (6.3-8.2) g/dL Assessment and Plan Assessment: acute on chronic systolic CHF cannot exclude pneumonia. Unknown ejection fraction currently.Echocardiogram from 11/2022: 30 to 35% Chest pain, rule out cardiac causes and non-STEMI Mild acute kidney injury on CKD stage III Obesity with BMI of 34.2 Coronary artery disease status post 2 stents before. Hypertension Hyperlipidemia Diabetes mellitus Plan: Continue with IV Lasix Monitor creatinine and electrolytes Check pro- Calcitonin Check viral panel Continue with heparin drip Continue with aspirin Cardiology consult Check hemoglobin A1c Labs and medication were reviewed.. Continue same treatment. Continue with symptomatic treatment. Resume home medication. Monitor labs and vitals. DVT and GI prophylaxis. Further recommendations as per clinical course of the patient DVT prophylaxis: heparin GI Prophylaxis: Pepcid PT/OT: Pending Prognosis is guarded
[2024-06-12] MEDS ORDERED: DEXTROSE 50% SYRINGE 50 ML IVP PRN ×2 (09:49)
[2024-06-12] MEDS ORDERED: ALPRAZolam 0.5 MG TAB PO PRN (10:24)
[2024-06-12] MEDS ORDERED: ALPRAZolam 0.25 MG TAB PO PRN (10:24)
[2024-06-12 10:34] LABS: Basophils # (A) 0.03 X 10*3/uL (0.00-0.10); Basophils % (A) 0.5 %; Eosinophils # (A) 0.15 X 10*3/uL (0.04-0.35); Eosinophils % (A) 2.3 %; HCT 49.1 % (39.6-50.0); HGB 15.8 g/dL (13.0-17.0); Lymphocytes # (A) 1.43 X 10*3/uL (0.90-5.00); Lymphocytes % (A) 22.2 %; MCH 28.8 pg (27.0-32.0); MCHC 32.2 g/dL (32.0-37.0); MCV 89.6 FL (80.0-97.0); Mean Platelet Volume 9.9 FL (9.5-12.2); Monocytes # (A) 0.89 X 10*3/uL (0.20-1.00); Monocytes % (A) 13.8 %; NRBC Per 100 WBC 0 X 10*3/uL (0.00-0.01); Neutrophils # (A) 3.92 X 10*3/uL (1.80-7.70); Neutrophils % (A) 60.9 %; Platelet Count 154 X 10*3/uL (140-440); RBC 5.48 X 10*6/uL (4.40-5.60); RDW 14.1 % (11.5-14.5); WBC 6.44 X 10*3/uL (4.50-10.00)
[2024-06-12] MEDS: ATORVASTATIN 40 MG TAB PO STA (10:55)
--- NOTE | 2024-06-12 11:03 | P.CRDCN ---
History of Present Illness Consult date: 06/12/24 Consult reason: chest pain History of present illness: This is an 88-year-old male follows with a debt collector at [facility], Dr. Quintero, with past medical history of hypertension, hyperlipidemia, history of coronary artery disease with stent of the LAD, open mitral valve surgery in -details are not available, chronic systolic heart failure, chronic hypoxic respiratory failure, paroxysmal atrial fibrillation, pacemaker, diabetes mellitus type 2, COPD. Patient gave history of chest pain onset yesterday while he was at rest. He states it feels like an elephant sitting on his chest. He states he still has the pain now and is a #8/10. He states is not any worse since he came in to the hospital and seems a little bit less now. He did receive nitroglycerin which did not help the pain but gave him a headache. Sakina ent has been started on a heparin drip. Blood pressure 154/64, heart rate 64, pulse ox 97% on 3 L nasal cannula. Patient is seen today in the emergency center waiting for a bed on the cardiac stepdown unit. Dr. Max discussed with the patient and his son at the bedside recommendations for cardiac catheterization which they are agreeable to move forward with today. -EKG: Ventricularly paced rhythm -Chest x-ray: Possible CHF exacerbation. -Laboratory studies: CBC within normal limits. INR 1.2. BUN 22 creatinine 1.37. Troponin 0.031, 0.097, 0.109. -Home cardiac medications: Aspirin 81 mg daily, hydralazine 100 mg daily, losartan 100 mg daily, metoprolol succinate 100 mg twice daily, Nitro-Bid 2.5 mg twice daily and Nitrostat as needed, spironolactone 12.5 mg daily. -Echocardiogram performed 11/17/2022 revealed EF of 30 to 35%, concentric left ventricular hypertrophy, moderate pulmonary hypertension, mild mitral and aortic regurgitation. -Cardiac catheterization performed 09/08/[address] BENNIE Garg in the setting of a NSTEMI finding total occlusion of the mid LAD where he had a previous stent. Dominant RCA and nondominant circumflex and left main are free of significant disease. Filling pressures are normal to gradient. Plan was for aggressive medical therapy and consider BIOCHEMISTRY TECHNOLOGIST intervention of the mid LAD if there is no OLIVEROS to LAD by surgery history. Review Of Systems: At the time of my exam: CONSTITUTIONAL: Denies fever or chills. HEENT: Denies blurred vision, vision changes, or eye pain. Denies hemoptysis CARDIOVASCULAR: Denies chest pain. Denies orthopnea. Denies PND. Denies palpitations RESPIRATORY: Denies shortness of breath. GASTROINTESTINAL: Denies abdominal pain. Denies nausea or vomiting. HEMATOLOGIC: Denies bleeding disorders. GENITOURINARY: Denies any blood in urine. SKIN: Denies puritis. Denies rash. Physical examination: Gen: This is an 88-year-old male in no acute distress VS: reviewed HEENT: Head is atraumatic, normocephalic. Pupils equal, round. Sclerae is anicteric. NECK: Supple. No JVD. LUNGS: Clear to auscultation. No wheezes or rhonchi. No intercostal retractions. HEART: Regular rate and rhythm. No murmur. ABDOMEN: Soft No tenderness. EXTREMITIES: No pedal edema. No calf tenderness. NEUROLOGICAL: Patient is awake, alert and oriented x3. Assessment: NSTEMI History of coronary artery disease Hypertension Hyperlipidemia Open mitral valve surgery 07/2004 Chronic systolic heart failure Chronic hypoxic respiratory failure on home O2 Paroxysmal atrial fibrillation Status post permanent pacemaker Diabetes mellitus type 2 COPD Plan: Resume patient's home cardiac medications Repeat EKG Obtain repeat troponin Schedule patient for left heart catheterization today with Dr. Max Continue heparin drip Obtain 2-D echocardiogram and Doppler study to assess cardiac structure and function Further recommendations to follow based upon clinical course Thank you kindly for this consultation. Nurse practitioner note has been reviewed, I agree with documented findings and plan of care. Patient was seen and examined. Past Medical History Past Medical History: Coronary Artery Disease (CAD), Chest Pain / Angina, Heart Failure, Diabetes Mellitus, GERD/Reflux, Hearing Disorder / Deafness, Hyperlipidemia, Hypertension Additional Past Medical History / Comment(s): gout, neuropathy, esophageal spasms History of Any Multi-Drug Resistant Organisms: None Reported Past Surgical History: Pacemaker Additional Past Surgical History / Comment(s): catract Past Anesthesia/Blood Transfusion Reactions: No Reported Reaction Type of Cardiac Device: Permanent Pacemaker Device Placement Date:: 06/11/2021 Past Psychological History: No Psychological Hx Reported Smoking Status: Never smoker Past Alcohol Use History: None Reported Past Drug Use History: None Reported - Past Family History Father Family Medical History: Cancer Additional Family Medical History / Comment(s): lung cancer Mother Family Medical History: Cancer Additional Family Medical History / Comment(s): breast cancer Medications and Allergies Home Medications Medication Instructions Recorded Confirmed Type Aspirin EC [Ecotrin Low Dose] 81 mg PO DAILY 11/17/22 06/11/24 History FLUoxetine HCL [PROzac] 40 mg PO DAILY 11/17/22 06/11/24 History Fexofenadine HCl [Yumi Allergy] 180 mg PO DAILY 11/17/22 06/11/24 History Gabapentin [Neurontin] 300 mg PO TID 11/17/22 06/11/24 History Glimepiride [Amaryl] 1 mg PO DAILY 11/17/22 06/11/24 History Losartan Potassium 100 mg PO DAILY 11/17/22 06/11/24 History Metoprolol Succinate (ER) [Toprol 100 mg PO BID 11/17/22 06/11/24 History XL] Multivit-Min/FA/Lycopen/Lutein 1 tab PO DAILY 11/17/22 06/11/24 History [Centrum Silver Tablet] Nitroglycerin Extended Release 2.5 mg PO BID 11/17/22 06/11/24 History [Nitro-Bid] Nitroglycerin Sl Tabs [Nitrostat] 0.4 mg SUBLINGUAL Q5M PRN 06/11/24 06/11/24 History Spironolactone [Aldactone] 12.5 mg PO DAILY 06/11/24 06/11/24 History hydrALAZINE HCL [Apresoline] 100 mg PO DAILY 06/11/24 06/11/24 History Allergies Allergy/AdvReac Type Severity Reaction Status Date / Time cephalexin [From Keflex] Allergy Unknown Verified 06/11/24 19:20 codeine Allergy Unknown Verified 06/11/24 19:20 Mushroom Allergy Unknown Verified 06/11/24 19:20 Penicillins Allergy Unknown Verified 06/11/24 19:20 prochlorperazine Allergy Unknown Verified 06/11/24 19:20 [From Compazine] shellfish derived [Shellfish] Allergy Rash/Hives Verified 06/11/24 19:20 Sulfa (Sulfonamide Allergy Unknown Verified 06/11/24 19:20 Antibiotics) organ meat AdvReac Rash/Hives Uncoded 06/11/24 16:38 Physical Exam Vitals: Vital Signs Temp Pulse Resp BP Pulse Ox 06/12/24 05:23 63 18 182/69 95 06/12/24 04:00 67 20 171/75 96 06/12/24 03:00 64 16 183/74 97 06/12/24 02:00 66 18 175/81 96 06/11/24 23:33 75 16 161/74 93 L 06/11/24 21:03 74 18 122/66 90 L 06/11/24 18:19 80 18 119/66 94 L 06/11/24 16:32 97.9 F 69 22 115/48 97 Intake and Output 06/11/24 06/12/24 06/12/24 22:59 06:59 14:59 Other: Weight 96.162 kg Results 06/12/24 05:04 06/11/24 17:10 Cardiac Enzymes 06/11/24 06/11/24 06/11/24 Range/Units 17:10 17:10 20:57 AST 21 (17-59) U/L Troponin I 0.031 0.097 H* (0.000-0.034) ng/mL 06/11/24 Range/Units 23:15 AST (17-59) U/L Troponin I 0.109 H* (0.000-0.034) ng/mL Coagulation 06/11/24 06/12/24 Range/Units 17:10 05:04 PT 12.6 H (10.0-12.5) sec APTT 25.2 69.0 H (22.0-30.0) sec CBC 06/11/24 Range/Units 17:10 WBC 9.7 (3.8-10.6) k/uL RBC 5.48 (4.30-5.90) m/uL Hgb 15.9 (13.0-17.5) gm/dL Hct 48.5 (39.0-53.0) % Plt Count 180 (150-450) k/uL Comprehensive Metabolic Panel 06/11/24 Range/Units 17:10 Sodium 139 (137-145) mmol/L Potassium 3.5 (3.5-5.1) mmol/L Chloride 107 (98-107) mmol/L Carbon Dioxide 22 (22-30) mmol/L BUN 22 H (9-20) mg/dL Creatinine 1.37 H (0.66-1.25) mg/dL Glucose 144 H (74-99) mg/dL Calcium 9.5 (8.4-10.2) mg/dL AST 21 (17-59) U/L ALT 20 (4-49) U/L Alkaline Phosphatase 63 (38-126) U/L Total Protein 6.0 L (6.3-8.2) g/dL Albumin 3.6 (3.5-5.0) g/dL Current Medications Generic Name Dose Route Start Last Admin Trade Name Freq PRN Reason Stop Dose Admin Aspirin 325 mg 06/12/24 09:00 Aspirin 325 Mg Tab PO DAILY [facility] Atorvastatin Calcium 40 mg 06/12/24 09:00 Atorvastatin 40 Mg Tab PO DAILY [facility] Famotidine 20 mg 06/12/24 09:00 Famotidine 20 Mg/2 Ml Vial IV Q12HR [facility] Fluoxetine HCl 40 mg 06/12/24 09:00 Fluoxetine Hcl 20 Mg Cap PO DAILY [facility] Gabapentin 300 mg 06/12/24 09:00 Gabapentin 300 Mg Cap PO TID [facility] Glimepiride 1 mg 06/12/24 09:00 Glimepiride 1 Mg Tab PO DAILY [facility] Heparin Sodium (Porcine) 0 unit 06/11/24 22:17 Heparin Sodium 1,000 Un/Ml (10ml Vl) IV PER PROTOCOL PRN Low PTT Protocol Hydralazine HCl 100 mg 06/12/24 09:00 Hydralazine Hcl 50 Mg Tab PO DAILY [facility] Heparin Sodium/Sodium Chloride 250 mls @ 10.001 mls/hr 06/11/24 22:30 06/11/24 22:37 25,000 unit/ Sodium Chloride IV 10.4 units/kg/hr .Q24H [facility] 10.001 mls/hr Administration Protocol 10.4 UNITS/KG/HR Losartan Potassium 100 mg 06/12/24 09:00 Losartan 50 Mg Tab PO DAILY [facility] Metoprolol Succinate 100 mg 06/12/24 09:00 Metoprolol Succinate (Er) 100 Mg Tab.Er.24h PO BID [facility] Nitroglycerin 0.4 mg 06/11/24 20:23 Nitroglycerin Sl Tabs 0.4 Mg Tab SUBLINGUAL Q5M PRN Chest Pain Nitroglycerin 2.5 mg 06/12/24 09:00 Nitroglycerin Extended Release 2.5 Mg Capsule.Er PO BID [facility] Spironolactone 12.5 mg 06/12/24 09:00 Spironolactone 25 Mg Tab PO DAILY [facility] Intake and Output 06/11/24 06/12/24 06/12/24 22:59 06:59 14:59 Other: Weight 96.162 kg 06/11/24 17:10 06/11/24 17:10
[2024-06-12 11:25] LABS: Chol/HDL Ratio 4.54 Ratio; LDL Cholesterol,Calculated 82.9 mg/dL (0.0-131.0)
[2024-06-12] MEDS: HEPARIN SODIUM,PORCINE (1 ML) 2,500 UNIT in SODIUM CHLORIDE 0.9% 250 ML IRRIGATION PRN (12:08)
[2024-06-12] MEDS: HEPARIN SODIUM,PORCINE 10,000 UNIT in SODIUM CHLORIDE 0.9% 1,000 ML IRRIGATION PRN (12:08)
[2024-06-12] MEDS: SODIUM CHLORIDE 0.9% 1,000 ML IV ONE (12:09)
[2024-06-12] MEDS: fentaNYL (PF) 50 MCG/ML 2 ML AMP IVP ONE (12:13)
[2024-06-12] MEDS: MIDAZOLAM 2 MG/2 ML VIAL IVP ONE (12:13)
[2024-06-12] MEDS: LIDOCAINE 1% INJ 10MG/ML (20 ML MDV) SQ ONE (12:15)
[2024-06-12] MEDS: VERAPAMIL SYRINGE (5 MG/10 ML) INTRAARTER ONE (12:16)
[2024-06-12] MEDS: HEPARIN SODIUM 1,000 UN/ML (10ML VL) IV ONE (12:42)
[2024-06-12] MEDS ORDERED: RX INFO: IV CONTRAST WAS GIVEN 1 EACH MISC MISCELLANE PRN (12:58)
[2024-06-12] MEDS: IOPAMIDOL-370 100ML BTL INJ ONE (13:05)
[2024-06-12] MEDS: INSULIN LISPRO (HumaLOG) 100 UNIT/ML 10 mL VL SQ SCH (15:50)
[2024-06-12] MEDS: FUROSEMIDE 10 MG/ML 4 ML VIAL IV SCH (15:51)
[2024-06-12] MEDS: SODIUM CHLORIDE 0.9% 1,000 ML IV SCH (15:56)
[2024-06-12] MEDS: ASPIRIN 325 MG TAB PO STA (16:04)
[2024-06-12 16:24] LABS: Influenza A Not Detected (Not Detectd); Influenza B Not Detected (Not Detectd); RSV Not Detected (Not Detectd)
[2024-06-12 17:19] LABS: Glucose,Whole Blood 98 mg/dL (70-110)
[2024-06-12 20:19] LABS: Glucose,Whole Blood 113 mg/dL (70-110)
[2024-06-13 05:28] LABS: Glucose,Whole Blood 87 mg/dL (70-110)
[2024-06-13 08:46] LABS: Basophils # (A) 0.04 X 10*3/uL (0.00-0.10); Basophils % (A) 0.8 %; Eosinophils # (A) 0.27 X 10*3/uL (0.04-0.35); Eosinophils % (A) 5.1 %; HCT 47.8 % (39.6-50.0); HGB 15.5 g/dL (13.0-17.0); Lymphocytes % (A) 20.6 %; MCH 28.9 pg (27.0-32.0); MCHC 32.4 g/dL (32.0-37.0); Mean Platelet Volume 9.5 FL (9.5-12.2); Monocytes # (A) 0.67 X 10*3/uL (0.20-1.00); Monocytes % (A) 12.6 %; NRBC Per 100 WBC 0 X 10*3/uL (0.00-0.01); Neutrophils # (A) 3.23 X 10*3/uL (1.80-7.70); Neutrophils % (A) 60.5 %; Platelet Count 145 X 10*3/uL (140-440); RBC 5.37 X 10*6/uL (4.40-5.60); RDW 13.8 % (11.5-14.5); WBC 5.33 X 10*3/uL (4.50-10.00)
[2024-06-13 09:14] LABS: BUN/Creat Ratio 13.07 Ratio (12.00-20.00); Blood Urea Nitrogen 19.6 mg/dL (9.0-27.0); Calcium 9.4 mg/dL (8.7-10.3); Carbon Dioxide 23.7 mmol/L (21.6-31.8); Chloride 106 mmol/L (96-109); Glucose 91 mg/dL (70-110); Potassium 4.3 mmol/L (3.5-5.5); Sodium 141 mmol/L (135-145)
[2024-06-13] MEDS: amLODIPine 5 MG TAB PO SCH (09:18)
[2024-06-13] MEDS: FAMOTIDINE 20 MG/2 ML VIAL IV SCH (09:19)
[2024-06-13] MEDS: carvediloL 12.5 MG TAB PO SCH (09:19)
[2024-06-13] MEDS: hydroCHLOROthiazide 12.5 MG CAP PO SCH (09:30)
--- NOTE | 2024-06-13 11:44 | P.PN ---
Subjective HISTORY OF PRESENT ILLNESS: This is an 88-year-old male follows with a marketing traffic coordinator at [facility], Dr. Quintero, with past medical history of hypertension, hyperlipidemia, history of coronary artery disease with stent of the LAD, open mitral valve surgery in -details are not available, chronic systolic heart failure, chronic hypoxic respiratory failure, paroxysmal atrial fibrillation, pacemaker, diabetes mellitus type 2, COPD. Patient gave history of chest pain onset yesterday while he was at rest. He states it feels like an elephant sitting on his chest. He states he still has the pain now and is a #8/10. He states is not any worse since he came in to the hospital and seems a little bit less now. He did receive nitroglycerin which did not help the pain but gave him a headache. Patient has been started on a heparin drip. Blood pressure 154/64, heart rate 64, pulse ox 97% on 3 L nasal cannula. Patient is seen today in the emergency center waiting for a bed on the cardiac stepdown unit. Dr. Max discussed with the patient and his son at the bedside recommendations for cardiac catheterization which they are agreeable to move forward with today. -EKG: Ventricular paced rhythm -Chest x-ray: Possible CHF exacerbation. -Laboratory studies: CBC within normal limits. INR 1.2. BUN 22 creatinine 1.37. Troponin 0.031, 0.097, 0.109. -Home cardiac medications: Aspirin 81 mg daily, hydralazine 100 mg daily, losartan 100 mg daily, metoprolol succinate 100 mg twice daily, Nitro-Bid 2.5 mg twice daily and Nitrostat as needed, spironolactone 12.5 mg daily. -Echocardiogram performed 11/17/2022 revealed EF of 30 to 35%, concentric left ventricular hypertrophy, moderate pulmonary hypertension, mild mitral and aortic regurgitation. -Cardiac catheterization performed 09/08/[address] BENNIE Garg in the setting of a NSTEMI finding total occlusion of the mid LAD where he had a previous stent. Dominant RCA and nondominant circumflex and left main are free of significant disease. Filling pressures are normal to gradient. Plan was for aggressive medical therapy and consider 1ST GRADE TEACHER intervention of the mid LAD if there is no OLIVEROS to LAD by surgery history. 06/13/2024 Patient examined this morning at the bedside. Patient underwent cardiac catheterization yesterday with Dr. Max. No dictation of cardiac catheterization available at this time. Per nursing, no intervention was performed. Patient denies any chest pain or pressure. He denies any shortness of breath. Patient's blood pressure is elevated today with a systolic in the 180s. PHYSICAL EXAM: VITAL SIGNS: Reviewed. GENERAL: Well-developed in no acute distress. NECK: Supple. No JVD or thyromegaly LUNGS: Respirations even and unlabored. Lungs essentially clear to auscultation bilaterally. HEART: Regular rate and rhythm. S1 and S2 heard. EXTREMITIES: Normal range of motion. No clubbing or cyanosis. Peripheral pulses intact. No lower extremity edema ASSESSMENT: NSTEMI History of coronary artery disease Hypertension Hyperlipidemia Open mitral valve surgery Chronic systolic heart failure Chronic hypoxic respiratory failure on home O2 Paroxysmal atrial fibrillation Status post permanent pacemaker Diabetes mellitus type 2 COPD PLAN: Obtain 2D echo to assess cardiac structure and function Discontinue hydralazine, metoprolol, and IV Lasix Begin carvedilol 25 mg twice a day Begin amlodipine 5 mg twice a day Decrease aspirin to 81 mg daily Add oral Lasix 20 mg daily Add Farxiga 10 mg daily Add hydrochlorothiazide 12.5 mg daily Continue additional cardiac medications including atorvastatin, losartan, and spironolactone Continue to monitor blood pressure Continue to monitor patient for an additional 24 hours. Possible discharge home tomorrow if patient remains stable Nurse practitioner note has been reviewed by physician. Signing provider agrees with the documented findings, assessment, and plan of care documented by ORBITREAD OPERATOR as a scribe. Objective - Vital Signs Vital signs: Vital Signs Temp 97.8 F 06/13/24 07:25 Pulse 68 06/13/24 07:25 Resp 15 06/13/24 07:25 BP 180/79 06/13/24 07:25 Pulse Ox 94 L 06/13/24 07:25 FiO2 Intake & Output 06/12/24 06/13/24 06/13/24 18:59 06:59 18:59 Intake Total 458 240 Output Total 200 825 Balance 258 -825 240 Weight 96.162 kg Intake: IV 100 Oral 358 240 Output: Urine 200 825 Other: Voiding Method Toilet # Voids 3 - Labs CBC & Chem 7: 06/13/24 04:45 06/13/24 04:45 Labs: Abnormal Lab Results - Last 24 Hours (Table) 06/12/24 06/13/24 Range/Units 20:16 04:45 Est GFR (CKD-EPI) 45 L (>=60) POC Glucose (mg/dL) 113 H (70-110) mg/dL
[2024-06-13 12:17] LABS: Glucose,Whole Blood 119 mg/dL (70-110)
[2024-06-13] MEDS ORDERED: ONDANSETRON 4 MG in SODIUM CHLORIDE 0.9% 50 ML IVPB PRN (15:04)
[2024-06-13] MEDS ORDERED: ONDANSETRON 4 MG/2 ML VIAL IVP PRN (15:08)
[2024-06-13] MEDS: NITROGLYCERIN SL TABS 0.4 MG TAB SUBLINGUAL PRN (15:52)
[2024-06-13 15:54] LABS: Glucose,Whole Blood 154 mg/dL (70-110)
--- NOTE | 2024-06-13 16:16 | P.CARDCATH ---
Description of Procedure: PROCEDURES PERFORMED: Bilateral coronary angiography, ultrasound guided arterial access INDICATION: Non-STEMI CONSENT:I have discussed the risks, benefits and alternative therapies for the above-mentioned procedure and for both sedation/analgesia as well as necessary blood product administration, if indicated, as they pertain to this patient. The patient has indicated understanding and acceptance of the risks and procedures discussed. PROCEDURE: After the risks, benefits and alternatives of the above mentioned procedure explained in detail with the patient, informed consent was obtained. Patient was taken to the catheterization lab and prepped and draped in usual fashion. Ultrasound guidance was used to assess for arterial access. 1% lidocaine was used to anesthetize the right radial artery. A 6-Guatemalan sheath was placed in the right radial artery using modified Seldinger technique and ultrasound guidance. There was significant tortuosity of the right radial artery at the elbow however this was able to be manipulated. There was extreme tortuosity of the subclavian artery with inability to engage in any catheters and therefore right radial approach was abandoned and left radial approach was used. Left radial approach also had significant tortuosity however able to engage. Left coronary angiography was performed with a 6-[place] JL 4.0 catheter and right coronary angiography was performed with a 5-Guatem[place] AR2 catheter in various views. The right radial sheath was removed and a TR band was placed with hemostasis achieved. The patient tolerated the procedure well. Patient was transported back to the post catheterization holding area in stable condition. Conscious Sedation: Patient was monitored under the direct supervision of myself for conscious sedation using Versed and fentanyl for a total duration of 30 minutes HEMODYNAMICS: Aorta: 122/71 SELECTIVE CORONARY ARTERIOGRAPHY: LEFT MAIN: The left main is a large caliber vessel which bifurcates into the LAD and circumflex. There is no significant stenosis. LEFT ANTERIOR DESCENDING CORONARY ARTERY: LAD is a large caliber vessel which w raps around to the apex. There is a moderate to large caliber diagonal branch which comes off proximally. After the diagonal branch there is a mid LAD stent that has diffuse 80 is a 90% stenosis. This really only gives off a small caliber diagonal 2 branch and then the LAD itself is occluded at the midportion with some dye hang up distal to the 100% occlusion. LEFT CIRCUMFLEX CORONARY ARTERY: Left circumflex is a moderate caliber vessel without significant stenosis. RIGHT CORONARY ARTERY: The right coronary artery is a large caliber vessel which gives off a PDA and PLV branch and is the dominant vessel. There is no significant stenosis with only mild luminal irregularities of the mid RCA. There are right to left collaterals FINAL IMPRESSION: 1. CAD as described above including 80 to 90% stenosis of mid LAD stent leading to a small caliber diagonal branch and otherwise GOLDSMITH APPRENTICE of the mid LAD similar to before. 2. Significant tortuosity of the right and left subclavian takeoff PLAN: 1. Aggressive risk factor modification per most recent ACC/AHA guidelines. 2. Patient has known GOLDSMITH APPRENTICE however some dye hang up more distal to the GOLDSMITH APPRENTICE. There are robust right to left collaterals and therefore treat medically. If having more significant angina may consider further assessment or stenting of the LAD stent into the diagonal branch however cover small territory and culprit lesion appeared distal LAD with some dye hang up.
[2024-06-13 17:16] LABS: Glucose,Whole Blood 125 mg/dL (70-110)
[2024-06-13] MEDS: ONDANSETRON 4 MG/2 ML VIAL IVP STA (17:44)
[2024-06-13] MEDS: ISOSORBIDE MONONITRATE ER 30 MG TAB.ER.24H PO SCH (17:55)
[2024-06-13 19:36] LABS: Glucose,Whole Blood 168 mg/dL (70-110)
--- NOTE | 2024-06-13 21:17 | P.PN ---
Subjective This is a pleasant 88 years old male. Presents because of chest pain. Patient states chest pain started yesterday at about 8/10 in the middle of the chest goes across to the right side. [place] like pressure. Associated with dyspnea and some coughing. Yesterday he had diarrhea about once a day but nothing today. No abdominal pain vomiting. No urinary complaint. He has little headache. States was secondary to nitro which was discontinued. As patient does not have chest pain now He denies smoking alcohol or illicit drugs. He is hemodynamically stable and afebrile. Blood pressure slightly on the high side 182/69. Chest x-ray showing possible CHF exacerbation with fluid overload EKG showing electronic ventricular paced rhythm at rate of 76. QTc 466 Echocardiogram from 11/2022: 30 to 35% 06/13 Patient was seen sitting at the bed age looks comfortable relaxed denies any chest pain or dyspnea or any other new complaint Patient had cardiac cath yesterday showing 80% stenosis of the mid LAD but no intervention required Echocardiogram requested and is pending. Cardiac team also evaluated patient today and made some blood pressure medic ation changes, hydrochlorothiazide and metoprolol were discontinued and instead patient was placed on Coreg 25 mg and Norvasc 5 mg. IV Lasix was stopped and started on oral Lasix 20 mg, Farxiga 10 mg and hydrochlorothiazide 12.5 mg. Has been is lowered to his home dose of 81 mg. After that the patient developed some dizziness associated with nausea but without falling and he had to get him back to his bed. His symptoms improved and currently To be monitored closely. Patient, daughter and son-in-law is at bedside have multiple questions and all questions answered to their satisfaction. Review of systems CONSTITUTIONAL: No fever, no malaise, no fatigue. HEENT: No recent visual problems or hearing problems. Denied any sore throat. CARDIOVASCULAR: No orthopnea, PND, no palpitations, no syncope. PULMONARY: No shortness of breath, no cough, no hemoptysis. HEMATOLOGICAL: Denies any bleeding or petechiae. GENITOURINARY: Denies any burning micturition, frequency, or urgency. MUSCULOSKELETAL/RHEUMATOLOGICAL: Denies any joint pain, swelling, or any muscle pain. Active Medications Generic Name Dose Route Start Last Admin Trade Name Freq PRN Reason Stop Dose Admin Alprazolam 0.25 mg 06/12/24 10:24 Alprazolam 0.25 Mg Tab PO Q6HR PRN Mild Anxiety Alprazolam 0.5 mg 06/12/24 10:24 Alprazolam 0.5 Mg Tab PO Q6HR PRN Moderate Anxiety Amlodipine Besylate 5 mg 06/14/24 09:00 Amlodipine 5 Mg Tab PO DAILY [facility] Aspirin 81 mg 06/14/24 09:00 Aspirin 81 Mg PO DAILY [facility] Atorvastatin Calcium 40 mg 06/12/24 09:00 06/13/24 09:19 Atorvastatin 40 Mg Tab PO 40 mg DAILY [facility] Administration Carvedilol 25 mg 06/13/24 09:15 06/13/24 17:55 Carvedilol 12.5 Mg Tab PO 25 mg BID-W/MEALS [facility] Administration Dapagliflozin 10 mg 06/14/24 09:00 Dapagliflozin Propanediol 10 Mg Tablet PO DAILY [facility] Dextrose/Water 25 ml 06/12/24 09:49 Dextrose 50% Syringe 50 Ml IVP PER PROTOCOL PRN Hypoglycemia Protocol Dextrose/Water 50 ml 06/12/24 09:49 Dextrose 50% Syringe 50 Ml IVP PER PROTOCOL PRN Hypoglycemia Protocol Famotidine 20 mg 06/13/24 09:00 06/13/24 09:19 Famotidine 20 Mg/2 Ml Vial IV 20 mg DAILY [facility] Administration Fluoxetine HCl 40 mg 06/12/24 09:00 06/13/24 09:18 Fluoxetine Hcl 20 Mg Cap PO 40 mg DAILY [facility] Administration Gabapentin 300 mg 06/12/24 09:00 06/13/24 17:55 Gabapentin 300 Mg Cap PO 300 mg TID [facility] Administration Glimepiride 1 mg 06/12/24 09:00 06/13/24 09:20 Glimepiride 1 Mg Tab PO 1 mg DAILY [facility] Administration Heparin Sodium (Porcine) 0 unit 06/11/24 22:17 Heparin Sodium 1,000 Un/Ml (10ml Vl) IV PER PROTOCOL PRN Low PTT Protocol Hydrochlorothiazide 12.5 mg 06/13/24 09:15 06/13/24 09:30 Hydrochlorothiazide 12.5 Mg Cap PO 12.5 mg DAILY [facility] Administration Insulin Human Lispro 0 unit 06/12/24 12:30 06/13/24 17:45 Insulin Lispro (Humalog) 100 Unit/Ml 10 Ml Vl SQ Not Given ACHS [facility] Protocol Isosorbide Mononitrate 30 mg 06/13/24 16:30 06/13/24 17:55 Isosorbide Mononitrate Er 30 Mg Tab.Er.24h PO 30 mg DAILY [facility] Administration Losartan Potassium 100 mg 06/12/24 09:00 06/13/24 09:18 Losartan 50 Mg Tab PO 100 mg DAILY [facility] Administration Miscellaneous Information 1 each 06/12/24 12:58 Rx Info: Iv Contrast Was Given 1 Each Misc MISCELLANE 06/14/24 12:58 DAILY PRN Per Protocol Ondansetron HCl 4 mg 06/13/24 15:08 Ondansetron 4 Mg/2 Ml Vial IVP Q6H PRN NAUSEA/VOMITING Ranolazine 500 mg 06/13/24 21:00 Ranolazine 500 Mg Tab.Er.12h PO Q12HR [facility] Spironolactone 12.5 mg 06/12/24 09:00 06/13/24 09:19 Spironolactone 25 Mg Tab PO 12.5 mg DAILY [facility] Administration Objective - Vital Signs Vital signs: Vital Signs Temp 97.8 F 06/13/24 07:25 Pulse 68 06/13/24 07:25 Resp 15 06/13/24 07:25 BP 180/79 06/13/24 07:25 Pulse Ox 94 L 06/13/24 07:25 FiO2 Intake & Output 06/12/24 06/13/24 06/13/24 18:59 06:59 18:59 Intake Total 458 240 Output Total 200 825 Balance 258 -825 240 Weight 96.162 kg Intake: IV 100 Oral 358 240 Output: Urine 200 825 Other: Voiding Method Toilet Toilet Urinal # Voids 3 - Exam GENERAL: The patient is alert and oriented x3, not in any acute distress. Well developed, well nourished. HEENT: Pupils are round and equally reacting to light. EOMI. No scleral icterus. No conjunctival pallor. Normocephalic, atraumatic. No pharyngeal erythema. No thyromegaly. CARDIOVASCULAR: S1 and S2 present. No murmurs, rubs, or gallops. PULMONARY: Chest is clear to auscultation, no wheezing , no crackles. ABDOMEN: Soft, nontender, nondistended, normoactive bowel sounds. No palpable organomegaly. MUSCULOSKELETAL: No joint swelling or deformity. EXTREMITIES: No cyanosis, clubbing, or pedal edema. NEUROLOGICAL: Gross neurological examination did not reveal any focal deficits. SKIN: No rashes. no petechiae. - Labs CBC & Chem 7: 06/13/24 04:45 06/13/24 04:45 Labs: Abnormal Lab Results - Last 24 Hours (Table) 06/12/24 06/13/24 06/13/24 Range/Units 20:16 04:45 12:16 Est GFR (CKD-EPI) 45 L (>=60) POC Glucose (mg/dL) 113 H 119 H (70-110) mg/dL Assessment and Plan Assessment: acute on chronic systolic CHF cannot exclude pneumonia. Unknown ejection fraction currently.Echocardiogram from 11/2022: 30 to 35% Chest pain, rule out cardiac causes and non-STEMI Mild acute kidney injury on CKD stage III Obesity with BMI of 34.2 Coronary artery disease status post 2 stents before. Hypertension Hyperlipidemia Diabetes mellitus Plan: Discontinue IV Lasix Monitor creatinine and electrolytes Check pro- Calcitonin was negative at 0.09 Check viral panel was negative Heparin drip was discontinued Continue with aspirin but at home dose Cardiology consult Blood pressure medication changes with discontinuation of hydrochlorothiazide and metoprolol. Started on Coreg, Norvasc, patient also placed on diuretics oral Lasix 20 mg, Farxiga 10 mg and HCTZ 12.5 mg Labs and medication were reviewed.. Continue same treatment. Continue with symptomatic treatment. Resume home medication. Monitor labs and vitals. DVT and GI prophylaxis. Further recommendations as per clinical course of the patient DVT prophylaxis: heparin GI Prophylaxis: Pepcid PT/OT: Pending Prognosis is guarded
[2024-06-13] MEDS: RANOLAZINE 500 MG TAB.ER.12H PO SCH (22:15)
[2024-06-14 06:05] LABS: Glucose,Whole Blood 79 mg/dL (70-110)
[2024-06-14 08:00] LABS: African American GFR (CKD) 50 (>60 ml/min/1.73 sqM); Anion Gap 7 mmol/L; Blood Urea Nitrogen 22 mg/dL (9-20); Calcium 9.4 mg/dL (8.4-10.2); Carbon Dioxide 29 mmol/L (22-30); Chloride 99 mmol/L (98-107); Glucose 99 mg/dL (74-99); Non-African American GFR(CKD) 43 (>60 ml/min/1.73 sqM); Potassium 3.7 mmol/L (3.5-5.1); Sodium 135 mmol/L (137-145)
[2024-06-14] MEDS ORDERED: FUROSEMIDE 20 MG TAB PO SCH (09:00)
[2024-06-14] MEDS: amLODIPine 5 MG TAB PO SCH (09:31)
[2024-06-14] MEDS: DAPAGLIFLOZIN PROPANEDIOL 10 MG TABLET PO SCH (09:32)
[2024-06-14] MEDS: ASPIRIN 81 MG PO SCH (09:32)
[2024-06-14 12:12] LABS: Glucose,Whole Blood 179 mg/dL (70-110)
--- NOTE | 2024-06-14 14:57 | P.PN ---
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 Quintero, with past medical history of hypertension, hyperlipidemia, history of coronary artery disease with stent of the LAD, open mitral valve surgery in -details are not available, chronic systolic heart failure, chronic hypoxic respiratory failure, paroxysmal atrial fibrillation, pacemaker, diabetes mellitus type 2, COPD. Patient gave history of chest pain onset yesterday while he was at rest. He states it feels like an elephant sitting on his chest. He states he still has the pain now and is a #8/10. He states is not any worse since he came in to the hospital and seems a little bit less now. He did receive nitroglycerin which did not help the pain but gave him a headache. Patient has been started on a heparin drip. Blood pressure 154/64, heart rate 64, pulse ox 97% on 3 L nasal cannula. Patient is seen today in the emergency center waiting for a bed on the cardiac stepdown unit. -EKG: Ventricularly paced rhythm -Chest x-ray: Possible CHF exacerbation. -Laboratory studies: CBC within normal limits. INR 1.2. BUN 22 creatinine 1.37. Troponin 0.031, 0.097, 0.109. -Home cardiac medications: Aspirin 81 mg daily, hydralazine 100 mg daily, losartan 100 mg daily, metoprolol succinate 100 mg twice daily, Nitro-Bid 2.5 mg twice daily and Nitrostat as needed, spironolactone 12.5 mg daily. -Echocardiogram performed 11/17/2022 revealed EF of 30 to 35%, concentric left ventricular hypertrophy, moderate pulmonary hypertension, mild mitral and aortic regurgitation. -Cardiac catheterization performed 09/08/[address] BENNIE Garg in the setting of a NSTEMI finding total occlusion of the mid LAD where he had a previous stent. Dominant RCA and nondominant circumflex and left main are free of significant disease. Filling pressures are normal to gradient. Plan was for aggressive medical therapy and consider LEAD ORACLE DEVELOPER intervention of the mid LAD if there is no OLIVEROS to LAD by surgery history. 06/13/2024 Left heart catheterization showed CAD including 80-90% stenosis of mid LAD stent leading to a small caliber diagonal branch and otherwise LEAD ORACLE DEVELOPER of the mid LAD similar to before. 06/14/2024 He has been feeling well. He denies any chest pain or pressure. Shortness of breath is improving. No dizziness. Creatinine 1.46. He is currently having echocardiogram done. Nurse reports that every time patient gets up he gets stiff and then falls straight back to the bed like he is going to pass out. They have been unable to successfully get orthostatic vital signs. Physical examination: Gen: This is an 88-year-old male in no acute distress VS: reviewed HEENT: Head is atraumatic, normocephalic. Pupils equal, round. Sclerae is anicteric. NECK: Supple. No JVD. LUNGS: Clear to auscultation. No wheezes or rhonchi. No intercostal retractions. HEART: Regular rate and rhythm. No murmur. ABDOMEN: Soft No tenderness. EXTREMITIES: No pedal edema. No calf tenderness. Right radial wrist with no hematoma, slight bruising, distal pulse present. NEUROLOGICAL: Patient is awake, alert and oriented x3. Assessment: NSTEMI History of coronary artery disease Hypertension Hyperlipidemia Open mitral valve surgery Chronic systolic heart failure Chronic hypoxic respiratory failure on home O2 Paroxysmal atrial fibrillation Status post permanent pacemaker Diabetes mellitus type 2 COPD Near-syncope Plan: Patient with known LEAD ORACLE DEVELOPER, robust collaterals, therefore, we will treat medically. If having more angina may consider further assessment or stenting of LAD stent into diagonal branch. Echocardiogram shows preliminary report of EF 30-35%, similar to prior. Will stop amlodipine and hydrochlorothiazide okay for permissive hypertension up to 160s. Check carotid ultrasound. Check orthostatic vital signs even if only able to get laying and sitting. Will follow. Nurse practitioner note has been reviewed, I agree with documented findings and plan of care. Patient was seen and examined in rounds with Dr. Max. Objective - Vital Signs Vital signs: Vital Signs Temp 97.4 F L 06/14/24 07:43 Pulse 66 06/14/24 02:00 Resp 16 06/14/24 07:43 BP 136/74 06/14/24 07:43 Pulse Ox 98 06/14/24 07:43 FiO2 Intake & Output 06/13/24 06/14/24 06/14/24 18:59 06:59 18:59 Intake Total 540 118 Output Total 200 Balance 540 -82 Intake: Oral 540 118 Output: Urine 200 Other: Voiding Method Toilet Toilet Urinal Urinal # Voids 2 - Labs CBC & Chem 7: 06/13/24 04:45 06/14/24 07:14 Labs: Abnormal Lab Results - Last 24 Hours (Table) 06/13/24 06/13/24 06/13/24 Range/Units 12:16 15:52 17:15 Sodium (137-145) mmol/L BUN (9-20) mg/dL Creatinine (0.66-1.25) mg/dL POC Glucose (mg/dL) 119 H 154 H 125 H (70-110) mg/dL 06/13/24 06/14/24 Range/Units 19:34 07:14 Sodium 135 L (137-145) mmol/L BUN 22 H (9-20) mg/dL Creatinine 1.46 H (0.66-1.25) mg/dL POC Glucose (mg/dL) 168 H (70-110) mg/dL
--- NOTE | 2024-06-14 15:25 | CA ---
Transthoracic Echo Report Name: Matthew Medeiros Age: 88 Gender: M : 1935 Exam Date: 06/14/2024 10:29 Exam Location: [facility] Ht (in): 65 Wt (lb): 212 Ordering Physician: Belinda Butler Attending/Referring Phys: [id number], Luke Watchmaking Teacher Lili Gamboa RDCS Procedure CPT: Indications: LV function, NSTEMI, s/p cath Cardiac Hx: TV Replacement Technical Quality: Fair Contrast 1: Definity Total Dose (mL): 2 Contrast 2: Total Dose (mL): MEASUREMENTS (Male / Female) Normal Values 2D ECHO LV Diastolic Diameter PLAX 4.5 cm 4.2 - 5.9 / 3.9 - 5.3 cm LV Systolic Diameter PLAX 3.7 cm IVS Diastolic Thickness 1.5 cm 0.6 - 1.0 / 0.6 - 0.9 cm LVPW Diastolic Thickness 1.7 cm 0.6 - 1.0 / 0.6 - 0.9 cm LV Relative Wall Thickness 0.7 RV Internal Dim ED PLAX 3.0 cm LVOT Diameter 2.2 cm LA Systolic Diameter LX 4.7 cm 3.0 - 4.0 / 2.7 - 3.8 cm LA Volume 66.7 cm??? 18 - 58 / 22 - 52 cm??? LA Volume Index 31.2 cm???/m??? 16 - 28 cm???/m??? M-MODE Aortic Root Diameter MM 3.4 cm LA Systolic Diameter MM 4.4 cm LA Ao Ratio MM 1.3 AV Cusp Separation MM 1.7 cm DOPPLER AV Peak Velocity 155.4 cm/s AV Peak Gradient 9.7 mmHg AV Mean Velocity 97.6 cm/s AV Mean Gradient 4.6 mmHg AV Velocity Time Integral 33.1 cm AI Peak Velocity 246.1 cm/s AI Peak Gradient 24.2 mmHg AI Pressure Half Time 1083.4 ms LVOT Peak Velocity 95.1 cm/s LVOT Peak Gradient 3.6 mmHg LVOT Velocity Time Integral 20.9 cm LVOT Stroke Volume 80.8 cm??? LVOT Stroke Volume Index 39.8 ml/m??? LVOT Cardiac Index 2301.1 cm???/min???m??? AV Area Cont Eq vti 2.4 cm??? AV Area Cont Eq pk 2.4 cm??? MV Area PHT 2.8 cm??? Mitral E Point Velocity 65.5 cm/s Mitral A Point Velocity 76.8 cm/s Mitral E to A Ratio 0.9 MV Deceleration Time 271.0 ms TV Peak Velocity 149.2 cm/s TR Peak Velocity 264.5 cm/s TR Peak Gradient 30.1 mmHg Right Atrial Pressure 10.0 mmHg Pulmonary Artery Systolic Pressu 38.0 mmHg Right Ventricular Systolic Press 38.0 mmHg FINDINGS Left Ventricle Left ventricular ejection fraction is estimated at 30-35 %. Moderately increased septal wall thickness. Left ventricular cavity size normal. Moderately reduced global left ventricular systolic function. Right Ventricle Mild right ventricular dilatation. Mild pulmonary hypertension. Right Atrium Severe right atrial dilatation. Interatrial septum bowed toward the left. Left Atrium Mildly increased left atrial diameter. Mildly increased left atrial volume. Mildly increased left atrial area. Mitral Valve Structurally normal mitral valve. Mild mitral regurgitation. No mitral stenosis. Aortic Valve Trileaflet aortic valve. Diffuse thickening (sclerosis) of the aortic valve cusps without reduced excursion. [id number] aortic regurgitation. Tricuspid Valve Prosthetic tricuspid valve. Mild tricuspid regurgitation. TV Mean PG 4.86 mmHg. Pulmonic Valve Structurally normal pulmonic valve. Trace pulmonic regurgitation. No pulmonic stenosis. Pericardium No pericardial or pleural effusion. Aorta Normal size aortic root and proximal ascending aorta. CONCLUSIONS Left ventricular ejection fraction 30-35% Mild mitral regurgitation Mild to moderate aortic regurgitation Bioprosthetic tricuspid valve with mean gradient 4.8 mmHg and normal function No pericardial effusion Previewed by: Dr. Trey Max DO (Electronically Signed) Final Date: 14 June 2024 15:24
--- NOTE | 2024-06-14 16:10 | P.PN ---
Progress Note - Text Progress Note Date: 06/14/24 Interval History: This is a pleasant 88 years old male. Presents because of chest pain. Patient states chest pain started yesterday at about 8/10 in the middle of the chest goes across to the right side. [place] like pressure. Associated with dyspnea and some coughing. Yesterday he had diarrhea about once a day but nothing today. No abdominal pain vomiting. No urinary complaint. He has little headache. States was secondary to nitro which was discontinued. As patient does not have chest pain now He denies smoking alcohol or illicit drugs. He is hemodynamically stable and afebrile. Blood pressure slightly on the high side 182/69. Chest x-ray showing possible CHF exacerbation with fluid overload EKG showing electronic ventricular paced rhythm at rate of 76. QTc 466 Echocardiogram from 11/2022: 30 to 35% 06/13 Patient was seen sitting at the bed age looks comfortable relaxed denies any chest pain or dyspnea or any other new complaint Patient had cardiac cath yesterday showing 80% stenosis of the mid LAD but no intervention required Echocardiogram requested and is pending. Cardiac team also evaluated patient today and made some blood pressure medication changes, hydrochlorothiazide and metoprolol were discontinued and instead patient was placed on Coreg 25 mg and Norvasc 5 mg. IV Lasix was stopped and started on oral Lasix 20 mg, Farxiga 10 mg and hydrochlorothiazide 12.5 mg. Has been is lowered to his home dose of 81 mg. After that the patient developed some dizziness associated with nausea but without falling and he had to get him back to his bed. His symptoms improved and currently To be monitored closely. Patient, daughter and son-in-law is at bedside have multiple questions and all questions answered to their satisfaction. 06/14--- patient was seen and examined today. Patient was complaining of dizziness, patient continues to feel dizziness worse with standing up. Orthostats positive. Cardiology following, holding Norvasc and hydrochlorothiazide. Assessment and plan: NSTEMI: Orthostatic hypotension: Recurrent falls: History of CAD/PCI Acute on chronic systolic CHF with a EF 30 to 35% Hypertension Hyperlipidemia Open mitral valve surgery 205 Chronic hypoxic respiratory failure on home oxygen as needed Paroxysmal atrial fibrillation Status post permanent pacemaker Diabetes mellitus: CKD with baseline creatinine around 1.3 Cardiology consulted, s/p cardiac catheterization showing 80 to 90% stenosis of mid LAD stent leading to small caliber diagonal branch, otherwise CONSTRUCTION SUPERVISOR of mid LAD similar to before, recommend medical management Continue aspirin, statin, Coreg, Farxiga, Imdur, losartan, Ranexa, Aldactone. Initially received IV Lasix and heparin drip. Discontinued hydrochlorothiazide and Norvasc due to orthostatic hypotension leading to recurrent falls Orthostatic blood pressures positive Accu-Cheks, diabetic diet, sliding scale insulin, Farxiga, glimepiride PT/OT consult DVT prophylaxis: Subcutaneous heparin Disposition: Anticipate subacute rehab Monitor vital signs and labs Labs and medication were reviewed. Continue same treatment. Further recommendations as per clinical course of the patient PHYSICAL EXAMINATION: GENERAL: The patient is A&O x3, NAD HEENT: EOMI, Sclerae anicteric, Moist Mucous membranes Neck: Supple, Non tender, No JVD PULMONARY: Equal breath souds B/L, No wheezing, No crackles. CARDIOVASCULAR: S1, S2 present. No murmurs, rubs, or gallops. ABDOMEN: Soft, nontender, nondistended, normoactive bowel sounds. No guarding or rebound tenderness. MUSCULOSKELETAL: No edema, No cyanosis. No clubbing. Normal ROM. Intact peripheral pulses. NEUROLOGICAL: CN 2-12 grossly intact. No FND Skin: No Rash REVIEW OF SYSTEMS: CONSTITUTIONAL: No fever or chills. CARDIOVASCULAR: No chest pain, palpitations or syncope. Complains of dizziness. PULMONARY: No shortness of breath, no cough, sore throat. GASTROINTESTINAL: No nausea, vomiting, diarrhea, abdominal pain. : No Dysuria, urgency, frequency. Extremities: No edema. NEUROLOGICAL: No headaches, no weakness, or numbness Dictation was produced using [employer] dictation software. please excuse any grammatical, word or spelling errors.
[2024-06-14 17:29] LABS: Glucose,Whole Blood 89 mg/dL (70-110)
--- NOTE | 2024-06-14 17:31 | US ---
EXAMINATION TYPE: US carotid duplex BILAT DATE OF EXAM: 06/14/2024 COMPARISON: NONE CLINICAL INDICATION: Male, 88 years old with history of dizziness, near syncope; dizzy Additional History: R42* Dizziness TECHNIQUE: Grayscale, color Doppler and spectral Doppler evaluation of the bilateral carotid systems and vertebral arteries. Indirect Doppler criteria was utilized. FINDINGS: EXAM MEASUREMENTS: RIGHT: Peak Systolic Velocity (PSV) cm/sec ----- Right CCA: 52 ----- Right ICA: 62.4 ----- Right ECA: 90 ICA/CCA ratio: 1.2 RIGHT: End Diastole cm/sec ----- Right CCA: 0 ----- Right ICA: 6.5 ----- Right ECA: 0 LEFT: Peak Systolic Velocity (PSV) cm/sec ----- Left CCA: 68.9 ----- Left ICA: 59.1 ----- Left ECA: 92.2 ICA/CCA ratio: .9 LEFT: End Diastole cm/sec ----- Left CCA: 0 ----- Left ICA: 14.3 ----- Left ECA: 0 VERTEBRALS (direction of flow): Right Vertebral: Antegrade Left Vertebral: Antegrade Rhythm: Normal ANIMAL CARE ATTENDANT NOTES: No significant stenosis seen Color Doppler imaging shows patency with blood flow throughout the carotid artery. Spectral waveforms are within normal limits. IMPRESSION: Right: No hemodynamically significant stenosis. Left: No hemodynamically significant stenosis. Criteria for Assigning % of Stenosis / Diameter reduction (Estimation based on the indirect measurements of the internal carotid artery velocities (ICA PSV). 1. Normal (no stenosis)=ICA PSV < 125 cm/s: ratio < 2.0: ICA EDV<40 cm/s. 2. Less than 50% stenosis=ICA PSV < 125 cm/s: ratio < 2.0: ICA EDV<40 cm/s. 3. 50 to 69% stenosis=ICA PSV of 125 to 230 cm/s: ration 2.0 ? 4.0: ICA EDV 40-100 cm/s. 4. Greater than 70% stenosis to near occlusion= ICA PSV > 230 cm/s: ratio > 4.0: ICA EDV > 100 cm/s. 5. Near occlusion= ICA PSV velocities may be low or undetectable: variable ratio and ICA EDV. 6. Total occlusion=unable to detect flow. [facility], , 06/14/2024 5:29 PM
[2024-06-14 20:09] LABS: Glucose,Whole Blood 127 mg/dL (70-110)
[2024-06-15 05:23] LABS: Glucose,Whole Blood 90 mg/dL (70-110)
[2024-06-15] MEDS: FAMOTIDINE 20 MG TAB PO SCH (08:33)
[2024-06-15] MEDS ORDERED: NITROGLYCERIN SL TABS 0.4 MG TAB SUBLINGUAL PRN (11:14)
[2024-06-15] MEDS ORDERED: ACETAMINOPHEN TAB 325 MG TAB PO PRN (11:15)
[2024-06-15 12:41] LABS: Glucose,Whole Blood 102 mg/dL (70-110)
--- NOTE | 2024-06-15 13:09 | P.PN ---
Subjective Progress Note Date: 06/15/24 Interval History: This is a pleasant 88 years old male. Presents because of chest pain. Patient states chest pain started yesterday at about 8/10 in the middle of the chest goes across to the right side. [place] like pressure. Associated with dyspnea and some coughing. Yesterday he had diarrhea about once a day but nothing today. No abdominal pain vomiting. No urinary complaint. He has little headache. States was secondary to nitro which was discontinued. As patient does not have chest pain now He denies smoking alcohol or illicit drugs. He is hemodynamically stable and afebrile. Blood pressure slightly on the high side 182/69. Chest x-ray showing possible CHF exacerbation with fluid overload EKG showing electronic ventricular paced rhythm at rate of 76. QTc 466 Echocardiogram from 11/2022: 30 to 35% 06/13 Patient was seen sitting at the bed age looks comfortable relaxed denies any chest pain or dyspnea or any other new complaint Patient had cardiac cath yesterday showing 80% stenosis of the mid LAD but no intervention required Echocardiogram requested and is pending. Cardiac team also evaluated patient today and made some blood pressure medication changes, hydrochlorothiazide and metoprolol were discontinued and instead patient was placed on Coreg 25 mg and Norvasc 5 mg. IV Lasix was stopped and started on oral Lasix 20 mg, Farxiga 10 mg and hydrochlorothiazide 12.5 mg. Has been is lowered to his home dose of 81 mg. After that the patient developed some dizziness associated with nausea but without falling and he had to get him back to his bed. His symptoms improved and currently To be monitored closely. Patient, daughter and son-in-law is at bedside have multiple questions and all questions answered to their satisfaction. 06/14--- patient was seen and examined today. Patient was complaining of dizziness, patient continues to feel dizziness worse with standing up. O rthostats positive. Cardiology following, holding Norvasc and hydrochlorothiazide. 06/15--patient was seen and examined today. Patient complained of chest pain earlier today.Patient is afebrile, heart rate 62, respiratory rate 18, blood pressure 136/68, saturating 98% on 3 L. Patient complained of chest pain earlier today. EKG done, no acute changes. Troponin trended down to normal. Dizziness is improving. Assessment and plan: NSTEMI: Orthostatic hypotension: Recurrent falls: History of CAD/PCI Acute on chronic systolic CHF with a EF 30 to 35% Hypertension Hyperlipidemia Open mitral valve surgery 205 Chronic hypoxic respiratory failure on home oxygen as needed Paroxysmal atrial fibrillation Status post permanent pacemaker Diabetes mellitus: CKD with baseline creatinine around 1.3 Cardiology consulted, s/p cardiac catheterization showing 80 to 90% stenosis of mid LAD stent leading to small caliber diagonal branch, otherwise BUDGET CONTROLLER of mid LAD similar to before, recommend medical management Continue aspirin, statin, Coreg, Farxiga, Imdur, losartan, Ranexa, Aldactone. Initially received IV Lasix and heparin drip. Discontinued hydrochlorothiazide and Norvasc due to orthostatic hypotension leading to recurrent falls Orthostatic blood pressures positive Accu-Cheks, diabetic diet, sliding scale insulin, Farxiga, glimepiride PT/OT consult DVT prophylaxis: Subcutaneous heparin Disposition: Anticipate subacute rehab Monitor vital signs and labs Labs and medication were reviewed. Continue same treatment. Further recommendations as per clinical course of the patient PHYSICAL EXAMINATION: GENERAL: The patient is A&O x3, NAD HEENT: EOMI, Sclerae anicteric, Moist Mucous membranes Neck: Supple, Non tender, No JVD PULMONARY: Equal breath souds B/L, No wheezing, No crackles. CARDIOVASCULAR: S1, S2 present. No murmurs, rubs, or gallops. ABDOMEN: Soft, nontender, nondistended, normoactive bowel sounds. No guarding or rebound tenderness. MUSCULOSKELETAL: No edema, No cyanosis. No clubbing. Normal ROM. Intact peripheral pulses. NEUROLOGICAL: CN 2-12 grossly intact. No FND Skin: No Rash REVIEW OF SYSTEMS: CONSTITUTIONAL: No fever or chills. CARDIOVASCULAR: No chest pain, palpitations or syncope. Complains of dizziness. PULMONARY: No shortness of breath, no cough, sore throat. GASTROINTESTINAL: No nausea, vomiting, diarrhea, abdominal pain. : No Dysuria, urgency, frequency. Extremities: No edema. NEUROLOGICAL: No headaches, no weakness, or numbness Dictation was produced using [employer] dictation software. please excuse any gra mmatical, word or spelling errors. Objective - Vital Signs Vital signs: Vital Signs Temp 97.6 F 06/15/24 08:00 Pulse 64 06/15/24 11:08 Resp 18 06/15/24 11:08 BP 136/68 06/15/24 11:08 Pulse Ox 98 06/15/24 11:08 FiO2 Intake & Output 06/14/24 06/15/24 06/15/24 18:59 06:59 18:59 Intake Total 339 Output Total 300 Balance 39 Intake: Oral 339 Output: Urine 300 Other: Voiding Method Toilet Toilet Toilet Urinal Urinal Urinal # Voids 3 - Labs CBC & Chem 7: 06/13/24 04:45 06/14/24 07:14 Labs: Abnormal Lab Results - Last 24 Hours (Table) 06/14/24 Range/Units 20:08 POC Glucose (mg/dL) 127 H (70-110) mg/dL
--- NOTE | 2024-06-15 16:54 | P.PN ---
Subjective Progress Note Date: 06/15/24 This is an 88-year-old male follows with a veterinarian small animal at [facility], Dr. Quintero, with past medical history of hypertension, hyperlipidemia, history of coronary artery disease with stent of the LAD, open mitral valve surgery in -details are not available, chronic systolic heart failure, chronic hypoxic respiratory failure, paroxysmal atrial fibrillation, pacemaker, diabetes mellitus type 2, COPD. Patient gave history of chest pain onset yesterday while he was at rest. He states it feels like an elephant sitting on his chest. He states he still has the pain now and is a #8/10. He states is not any worse since he came in to the hospital and seems a little bit less now. He did receive nitroglycerin which did not help the pain but gave him a headache. Patient has been started on a heparin drip. Blood pressure 154/64, heart rate 64, pulse ox 97% on 3 L nasal cannula. Patient is seen today in the emergency center waiting for a bed on the cardiac stepdown unit. -EKG: Ventricularly paced rhythm -Chest x-ray: Possible CHF exacerbation. -Laboratory studies: CBC within normal limits. INR 1.2. BUN 22 creatinine 1.37. Troponin 0.031, 0.097, 0.109. -Home cardiac medications: Aspirin 81 mg daily, hydralazine 100 mg daily, losartan 100 mg daily, metoprolol succinate 100 mg twice daily, Nitro-Bid 2.5 mg twice daily and Nitrostat as needed, spironolactone 12.5 mg daily. -Echocardiogram performed 11/17/2022 revealed EF of 30 to 35%, concentric left ventricular hypertrophy, moderate pulmonary hypertension, mild mitral and aortic regurgitation. -Cardiac catheterization performed 09/08/[address] BENNIE Garg in the setting of a NSTEMI finding total occlusion of the mid LAD where he had a previous stent. Dominant RCA and nondominant circumflex and left main are free of significant disease. Filling pressures are normal to gradient. Plan was for aggressive medical therapy and consider EDITOR TRADE JOURNAL intervention of the mid LAD if there is no OLIVEROS to LAD by surgery history. 06/13/2024 Left heart catheterization showed CAD including 80-90% stenosis of mid LAD stent leading to a small caliber diagonal branch and otherwise EDITOR TRADE JOURNAL of the mid LAD similar to before. 06/14/2024 He has been feeling well. He denies any chest pain or pressure. Shortness of breath is improving. No dizziness. Creatinine 1.46. He is currently having echocardiogram done. Nurse reports that every time patient gets up he gets stiff and then falls straight back to the bed like he is going to pass out. They have been unable to successfully get orthostatic vital signs. 06/15/2024 Patient complaining of chest pressure and heaviness this morning while sitting up in the chair. Nurse reports he has been ambulatory to the restroom this morning with some dizziness. EKG shows sinus rhythm with QT/QTc 500/567. Troponin was negative. Orthostatic vital signs were positive with systolic drop from 111-88. Carotid ultrasound did not show any significant stenosis bilateral ICA. Echocardiogram does show EF 30-35%, bioprosthetic tricuspid valve with mean gradient 4.8, normal function. Physical examination: Gen: This is an 88-year-old male in no acute distress VS: reviewed HEENT: Head is atraumatic, normocephalic. Pupils equal, round. Sclerae is anicteric. NECK: Supple. No JVD. LUNGS: Clear to auscultation. No wheezes or rhonchi. No intercostal retractions. HEART: Regular rate and rhythm. No murmur. ABDOMEN: Soft No tenderness. EXTREMITIES: No pedal edema. No calf tenderness. NEUROLOGICAL: Patient is awake, alert and oriented x3. Assessment: NSTEMI History of coronary artery disease Hypertension Hyperlipidemia Open mitral valve surgery Chronic systolic heart failure Chronic hypoxic respiratory failure on home O2 Paroxysmal atrial fibrillation Status post permanent pacemaker Diabetes mellitus type 2 COPD Near-syncope Plan: Patient having chest pain this morning, EKG stable and troponin negative. He did have orthostatic vital signs positive yesterday. Will decrease losartan to 50 mg and monitor response. Patient with known EDITOR TRADE JOURNAL, robust collaterals, therefo re, we will treat medically. If having more angina may consider further assessment or stenting of LAD stent into diagonal branch. Okay for permissive hypertension up to 160s. Anticipate possible discharge home tomorrow. Will follow. Nurse practitioner note has been reviewed, I agree with documented findings and plan of care. Patient was seen and examined in rounds with Dr. Max. Objective - Vital Signs Vital signs: Vital Signs Temp 97.6 F 06/15/24 08:00 Pulse 63 03/02/25 08:00 Resp 19 06/15/24 08:00 BP 143/70 06/15/24 08:00 Pulse Ox 93 L 06/15/24 08:00 FiO2 Intake & Output 06/14/24 06/15/24 06/15/24 18:59 06:59 18:59 Intake Total 339 Output Total 300 Balance 39 Intake: Oral 339 Output: Urine 300 Other: Voiding Method Toilet Toilet Urinal Urinal # Voids 3 - Labs CBC & Chem 7: 06/13/24 04:45 06/14/24 07:14 Labs: Abnormal Lab Results - Last 24 Hours (Table) 06/14/24 06/14/24 Range/Units 12:11 20:08 POC Glucose (mg/dL) 179 H 127 H (70-110) mg/dL
[2024-06-15 17:21] LABS: Glucose,Whole Blood 147 mg/dL (70-110)
[2024-06-15 20:47] LABS: Glucose,Whole Blood 148 mg/dL (70-110)
[2024-06-16 05:46] LABS: Glucose,Whole Blood 92 mg/dL (70-110)
[2024-06-16 08:17] LABS: Basophils # (A) 0.05 X 10*3/uL (0.00-0.10); Basophils % (A) 0.9 %; Eosinophils # (A) 0.17 X 10*3/uL (0.04-0.35); Eosinophils % (A) 3.1 %; HCT 46.4 % (39.6-50.0); Lymphocytes # (A) 1.46 X 10*3/uL (0.90-5.00); Lymphocytes % (A) 26.2 %; MCH 28.9 pg (27.0-32.0); MCHC 32.3 g/dL (32.0-37.0); MCV 89.4 FL (80.0-97.0); Mean Platelet Volume 9.7 FL (9.5-12.2); Monocytes # (A) 0.68 X 10*3/uL (0.20-1.00); Monocytes % (A) 12.2 %; NRBC Per 100 WBC 0 X 10*3/uL (0.00-0.01); Neutrophils # (A) 3.19 X 10*3/uL (1.80-7.70); Neutrophils % (A) 57.2 %; Platelet Count 152 X 10*3/uL (140-440); RBC 5.19 X 10*6/uL (4.40-5.60); RDW 13.4 % (11.5-14.5); WBC 5.57 X 10*3/uL (4.50-10.00)
[2024-06-16 08:52] LABS: BUN/Creat Ratio 12.72 Ratio (12.00-20.00); Blood Urea Nitrogen 22.9 mg/dL (9.0-27.0); Glucose 91 mg/dL (70-110); Potassium 4.7 mmol/L (3.5-5.5); Sodium 141 mmol/L (135-145)
[2024-06-16 08:53] LABS: Calcium 9.6 mg/dL (8.7-10.3); Chloride 105 mmol/L (96-109)
--- NOTE | 2024-06-16 10:41 | P.PN ---
Subjective Progress Note Date: 06/16/24 This is an 88-year-old male follows with a control systems eng at [facility], Dr. Quintero, with past medical history of hypertension, hyperlipidemia, history of coronary artery disease with stent of the LAD, open mitral valve surgery in -details are not available, chronic systolic heart failure, chronic hypoxic respiratory failure, paroxysmal atrial fibrillation, pacemaker, diabetes mellitus type 2, COPD. Patient gave history of chest pain onset yesterday while he was at rest. He states it feels like an elephant sitting on his chest. He states he still has the pain now and is a #8/10. He states is not any worse since he came in to the hospital and seems a little bit less now. He did receive nitroglycerin which did not help the pain but gave him a headache. Patient has been started on a heparin drip. Blood pressure 154/64, heart rate 64, pulse ox 97% on 3 L nasal cannula. Patient is seen today in the emergency center waiting for a bed on the cardiac stepdown unit. -EKG: Ventricularly paced rhythm -Chest x-ray: Possible CHF exacerbation. -Laboratory studies: CBC within normal limits. INR 1.2. BUN 22 creatinine 1.37. Troponin 0.031, 0.097, 0.109. -Home cardiac medications: Aspirin 81 mg daily, hydralazine 100 mg daily, losartan 100 mg daily, metoprolol succinate 100 mg twice daily, Nitro-Bid 2.5 mg twice daily and Nitrostat as needed, spironolactone 12.5 mg daily. -Echocardiogram performed 11/17/2022 revealed EF of 30 to 35%, concentric left ventricular hypertrophy, moderate pulmonary hypertension, mild mitral and aortic regurgitation. -Cardiac catheterization performed 09/08/[address] BENNIE Garg in the setting of a NSTEMI finding total occlusion of the mid LAD where he had a previous stent. Dominant RCA and nondominant circumflex and left main are free of significant disease. Filling pressures are normal to gradient. Plan was for aggressive medical therapy and consider THREAD CUTTER TENDER intervention of the mid LAD if there is no OLIVEROS to LAD by surgery history. 06/13/2024 Left heart catheterization showed CAD including 80-90% stenosis of mid LAD stent leading to a small caliber diagonal branch and otherwise THREAD CUTTER TENDER of the mid LAD similar to before. 06/14/2024 He has been feeling well. He denies any chest pain or pressure. Shortness of breath is improving. No dizziness. Creatinine 1.46. He is currently having echocardiogram done. Nurse reports that every time patient gets up he gets stiff and then falls straight back to the bed like he is going to pass out. They have been unable to successfully get orthostatic vital signs. 06/15/2024 Patient complaining of chest pressure and heaviness this morning while sitting up in the chair. Nurse reports he has been ambulatory to the restroom this morning with some dizziness. EKG shows sinus rhythm with QT/QTc 500/567. Troponin was negative. Orthostatic vital signs were positive with systolic drop from 111-88. Carotid ultrasound did not show any significant stenosis bilateral ICA. Echocardiogram does show EF 30-35%, bioprosthetic tricuspid valve with mean gradient 4.8, normal function. 06/16 Patient seen and examined. Patient denies having any chest pain or chest pressure. He states he slept well last night. Orthostatic vital signs were positive this morning with drop of systolic pressure from 126-80. BUN 22 creatinine 1.8. TSH 4.56. Cortisols 9. Physical examination: Gen: This is an 88-year-old male in no acute distress VS: reviewed HEENT: Head is atraumatic, normocephalic. Pupils equal, round. Sclerae is anicteric. NECK: Supple. No JVD. LUNGS: Clear to auscultation. No wheezes or rhonchi. No intercostal retractions. HEART: Regular rate and rhythm. No murmur. ABDOMEN: Soft No tenderness. EXTREMITIES: No pedal edema. No calf tenderness. NEUROLOGICAL: Patient is awake, alert and oriented x3. Assessment: NSTEMI History of coronary artery disease Hypertension Hyperlipidemia Open mitral valve surgery Chronic systolic heart failure Chronic hypoxic respiratory failure on home O2 Paroxysmal atrial fibrillation Status post permanent pacemaker Diabetes mellitus type 2 COPD Near-syncope Plan: No complaints of chest pain today. He did have orthostatic vital signs positive this morning and losartan decreased to 25 mg with parameters to hold for systolic blood pressure less than 115. Monitor blood pressure patient with known THREAD CUTTER TENDER, robust collaterals, therefore, we will treat medically. Okay for permissive hypertension up to 160s. Patient is cleared from cardiology for discharge Nurse practitioner note has been reviewed, I agree with documented findings and plan of care. Patient was seen and examined in rounds with Dr. Max. Objective - Vital Signs Vital signs: Vital Signs Temp 97.8 F 06/16/24 02:29 Pulse 65 06/16/24 02:29 Resp 15 06/16/24 02:29 BP 136/78 06/16/24 02:29 Pulse Ox 98 06/16/24 02:29 FiO2 Intake & Output 06/15/24 06/16/24 06/16/24 18:59 06:59 18:59 Other: Voiding Method Toilet Toilet Urinal Urinal # Voids 4 1 - Labs CBC & Chem 7: 06/16/24 04:44 06/16/24 04:44 Labs: Abnormal Lab Results - Last 24 Hours (Table) 06/15/24 06/15/24 Range/Units 17:19 20:46 POC Glucose (mg/dL) 147 H 148 H (70-110) mg/dL
[2024-06-16 12:19] LABS: Glucose,Whole Blood 128 mg/dL (70-110)
--- NOTE | 2024-06-16 13:18 | P.PN ---
Subjective Interval History: This is a pleasant 88 years old male. Presents because of chest pain. Patient states chest pain started yesterday at about 8/10 in the middle of the chest goes across to the right side. [place] like pressure. Associated with dyspnea and some coughing. Yesterday he had diarrhea about once a day but nothing today. No abdominal pain vomiting. No urinary complaint. He has little headache. States was secondary to nitro which was discontinued. As patient does not have chest pain now He denies smoking alcohol or illicit drugs. He is hemodynamically stable and afebrile. Blood pressure slightly on the high side 182/69. Chest x-ray showing possible CHF exacerbation with fluid overload EKG showing electronic ventricular paced rhythm at rate of 76. QTc 466 Echocardiogram from 11/2022: 30 to 35% 06/13 Patient was seen sitting at the bed age looks comfortable relaxed denies any chest pain or dyspnea or any other new complaint Patient had cardiac cath yesterday showing 80% stenosis of the mid LAD but no intervention required Echocardiogram requested and is pending. Cardiac team also evaluated patient today and made some blood pressure medication changes, hydrochlorothiazide and metoprolol were discontinued and instead patient was placed on Coreg 25 mg and Norvasc 5 mg. IV Lasix was stopped and started on oral Lasix 20 mg, Farxiga 10 mg and hydrochlorothiazide 12.5 mg. Has been is lowered to his home dose of 81 mg. After that the patient developed some dizziness associated with nausea but without falling and he had to get him back to his bed. His symptoms improved and currently To be monitored closely. Patient, daughter and son-in-law is at bedside have multiple questions and all questions answered to their satisfaction. 06/14--- patient was seen and examined today. Patient was complaining of dizziness, patient continues to feel dizziness worse with standing up. Orthostats positive. Cardiology following, holding Norvasc and hydrochlorothiazide. 06/15--patient was seen and examined today. Patient complained of chest pain earlier today.Patient is afebrile, heart rate 62, respiratory rate 18, blood pressure 136/68, saturating 98% on 3 L. Patient complained of chest pain earlier today. EKG done, no acute changes. Troponin trended down to normal. Dizziness is improving. 06/16--patient was seen and examined today. Patient had another episode of dizziness with standing today, orthostatic vitals positive this morning with drop of systolic blood pressure from 120s to 80. Cortisol 9, TSH 4.56. Cardiology following, losartan dose decreased to 25 mg with parameters. CBC is unremarkable. BUN 22, creatinine 1.8 today. Assessment and plan: NSTEMI: Orthostatic hypotension: Recurrent falls: History of CAD/PCI Acute on chronic systolic CHF with a EF 30 to 35% Hypertension Hyperlipidemia Open mitral valve surgery 205 Chronic hypoxic respiratory failure on home oxygen as needed Paroxysmal atrial fibrillation Status post permanent pacemaker Diabetes mellitus: CKD with baseline creatinine around 1.3 Cardiology consulted, s/p cardiac catheterization showing 80 to 90% stenosis of mid LAD stent leading to small caliber diagonal branch, otherwise DRESS FINISHER of mid LAD similar to before, recommend medical management Continue aspirin, statin, Coreg, Farxiga, Imdur, losartan, Ranexa, Aldactone. Initially received IV Lasix and heparin drip. Discontinued hydrochlorothiazide and Norvasc due to orthostatic hypotension leading to recurrent falls Orthostatic blood pressures positive, losartan dose decreased. Accu-Cheks, diabetic diet, sliding scale insulin, Farxiga, glimepiride PT/OT consult DVT prophylaxis: Subcutaneous heparin Disposition: PT/OT recommended home health. Monitor vital signs and labs Labs and medication were reviewed. Continue same treatment. Further recommendations as per clinical course of the patient PHYSICAL EXAMINATION: GENERAL: The patient is A&O x3, NAD HEENT: EOMI, Sclerae anicteric, Moist Mucous membranes Neck: Supple, Non tender, No JVD PULMONARY: Equal breath souds B/L, No wheezing, No crackles. CARDIOVASCULAR: S1, S2 present. No murmurs, rubs, or gallops. ABDOMEN: Soft, nontender, nondistended, normoactive bowel sounds. No guarding or rebound tenderness. MUSCULOSKELETAL: No edema, No cyanosis. No clubbing. Normal ROM. Intact peripheral pulses. NEUROLOGICAL: CN 2-12 grossly intact. No FND Skin: No Rash REVIEW OF SYSTEMS: CONSTITUTIONAL: No fever or chills. CARDIOVASCULAR: No chest pain, palpitations or syncope. Complains of dizziness. PULMONARY: No shortness of breath, no cough, sore throat. GASTROINTESTINAL: No nausea, vomiting, diarrhea, abdominal pain. : No Dysuria, urgency, frequency. Extremities: No edema. NEUROLOGICAL: No headaches, no weakness, or numbness Dictation was produced using [employer] dictation software. please excuse any grammatical, word or spelling errors. Objective - Vital Signs Vital signs: Vital Signs Temp 98.1 F 06/16/24 07:15 Pulse 60 06/16/24 12:15 Resp 15 06/16/24 08:00 BP 144/77 06/16/24 12:15 Pulse Ox 98 06/16/24 12:15 FiO2 Intake & Output 06/15/24 06/16/24 06/16/24 18:59 06:59 18:59 Intake Total 118 Balance 118 Intake: Oral 118 Other: Voiding Method Toilet Toilet Toilet Urinal Urinal Urinal # Voids 4 1 1 - Labs CBC & Chem 7: 06/16/24 04:44 06/16/24 04:44 Labs: Abnormal Lab Results - Last 24 Hours (Table) 06/15/24 06/15/24 06/16/24 Range/Units 17:19 20:46 04:44 Creatinine 1.8 H (0.6-1.5) mg/dL Est GFR (CKD-EPI) 36 L (>=60) POC Glucose (mg/dL) 147 H 148 H (70-110) mg/dL 06/16/24 Range/Units 12:18 Creatinine (0.6-1.5) mg/dL Est GFR (CKD-EPI) (>=60) POC Glucose (mg/dL) 128 H (70-110) mg/dL
[2024-06-16] MEDS: LOSARTAN 50 MG TAB PO SCH (14:44)
[2024-06-16 17:52] LABS: Glucose,Whole Blood 218 mg/dL (70-110)
[2024-06-16 20:27] LABS: Glucose,Whole Blood 102 mg/dL (70-110)
[2024-06-17 05:52] LABS: Glucose,Whole Blood 92 mg/dL (70-110)
[2024-06-17 08:13] VITALS: BP 164/77; PULSE 65; TEMP 97.5
[2024-06-17] MEDS: LOSARTAN 25 MG TAB PO SCH (09:18)
--- NOTE | 2024-06-17 11:46 | P.PN ---
Subjective Progress Note Date: 06/17/24 This is an 88-year-old male follows with a machine tech at [facility], Dr. Quintero, with past medical history of hypertension, hyperlipidemia, history of coronary artery disease with stent of the LAD, open mitral valve surgery in -details are not available, chronic systolic heart failure, chronic hypoxic respiratory failure, paroxysmal atrial fibrillation, pacemaker, diabetes mellitus type 2, COPD. Patient gave history of chest pain onset yesterday while he was at rest. He states it feels like an elephant sitting on his chest. He states he still has the pain now and is a #8/10. He states is not any worse since he came in to the hospital and seems a little bit less now. He did receive nitroglycerin which did not help the pain but gave him a headache. Patient has been started on a heparin drip. Blood pressure 154/64, heart rate 64, pulse ox 97% on 3 L nasal cannula. Patient is seen today in the emergency center waiting for a bed on the cardiac stepdown unit. -EKG: Ventricularly paced rhythm -Chest x-ray: Possible CHF exacerbation. -Laboratory studies: CBC within normal limits. INR 1.2. BUN 22 creatinine 1.37. Troponin 0.031, 0.097, 0.109. -Home cardiac medications: Aspirin 81 mg daily, hydralazine 100 mg daily, losartan 100 mg daily, metoprolol succinate 100 mg twice daily, Nitro-Bid 2.5 mg twice daily and Nitrostat as needed, spironolactone 12.5 mg daily. -Echocardiogram performed 11/17/2022 revealed EF of 30 to 35%, concentric left ventricular hypertrophy, moderate pulmonary hypertension, mild mitral and aortic regurgitation. -Cardiac catheterization performed 09/08/[address] BENNIE Garg in the setting of a NSTEMI finding total occlusion of the mid LAD where he had a previous stent. Dominant RCA and nondominant circumflex and left main are free of significant disease. Filling pressures are normal to gradient. Plan was for aggressive medical therapy and consider HEAD OF HISTORY intervention of the mid LAD if there is no OLIVEROS to LAD by surgery history. 06/13/2024 Left heart catheterization showed CAD including 80-90% stenosis of mid LAD stent leading to a small caliber diagonal branch and otherwise HEAD OF HISTORY of the mid LAD similar to before. 06/14/2024 He has been feeling well. He denies any chest pain or pressure. Shortness of breath is improving. No dizziness. Creatinine 1.46. He is currently having echocardiogram done. Nurse reports that every time patient gets up he gets stiff and then falls straight back to the bed like he is going to pass out. They have been unable to successfully get orthostatic vital signs. 06/15/2024 Patient complaining of chest pressure and heaviness this morning while sitting up in the chair. Nurse reports he has been ambulatory to the restroom this morning with some dizziness. EKG shows sinus rhythm with QT/QTc 500/567. Troponin was negative. Orthostatic vital signs were positive with systolic drop from 111-88. Carotid ultrasound did not show any significant stenosis bilateral ICA. Echocardiogram does show EF 30-35%, bioprosthetic tricuspid valve with mean gradient 4.8, normal function. 06/16 Patient seen and examined. Patient denies having any chest pain or chest pressure. He states he slept well last night. Orthostatic vital signs were positive this morning with drop of systolic pressure from 126-80. BUN 22 creatinine 1.8. TSH 4.56. Cortisols 9. 06/17 Patient had orthostatic changes and yesterday losartan was decreased and parameters placed. Patient does state that he is having dizziness when he is getting up. He was just working with physical therapy. He gets improvement when he sits down. He denies chest pain or shortness of breath. He is able to monitor his blood pressure at home. This morning, orthostatic changes are from a systolic of 164 supine to 134 standing. Physical examination: Gen: This is an 88-year-old male in no acute distress VS: reviewed HEENT: Head is atraumatic, normocephalic. Pupils equal, round. Sclerae is anicteric. NECK: Supple. No JVD. LUNGS: Clear to auscultation. No wheezes or rhonchi. No intercostal retractions. HEART: Regular rate and rhythm. No murmur. ABDOMEN: Soft No tenderness. EXTREMITIES: No pedal edema. No calf tenderness. NEUROLOGICAL: Patient is awake, alert and oriented x3. Assessment: NSTEMI History of coronary artery disease Hypertension Hyperlipidemia Open mitral valve surgery Chronic systolic heart failure Chronic hypoxic respiratory failure on home O2 Paroxysmal atrial fibrillation Status post permanent pacemaker Diabetes mellitus type 2 COPD Near-syncope Plan: No complaints of chest pain Continue the reduced dose of losartan 25 mg with parameters to hold for systolic blood pressure less than 115. Monitor blood pressure, patient will do this at home patient with known HEAD OF HISTORY, robust collaterals, therefore, we will treat medically. Okay for permissive hypertension up to 160s. Patient is cleared from cardiology for discharge and will follow-up with his primary machine tech in 1 to 2 weeks. Nurse practitioner note has been reviewed, I agree with documented findings and plan of care. Patient was seen and examined in rounds with Dr. Max. Objective - Vital Signs Vital signs: Vital Signs Temp 97.5 F L 06/17/24 07:45 Pulse 65 06/17/24 07:45 Resp 16 06/17/24 07:45 BP 164/77 06/17/24 07:45 Pulse Ox 98 06/17/24 07:45 FiO2 Intake & Output 06/16/24 06/17/24 06/17/24 18:59 06:59 18:59 Intake Total 476 Balance 476 Intake: Oral 476 Other: Voiding Method Toilet Urinal # Voids 2 4 - Labs CBC & Chem 7: 06/16/24 04:44 06/16/24 04:44 Labs: Abnormal Lab Results - Last 24 Hours (Table) 06/16/24 06/16/24 06/16/24 Range/Units 04:44 12:18 17:50 Creatinine 1.8 H (0.6-1.5) mg/dL Est GFR (CKD-EPI) 36 L (>=60) POC Glucose (mg/dL) 128 H 218 H (70-110) mg/dL
[2024-06-17 11:53] VITALS: RESP 15
== END 2024-06-17 12:58 | disposition home health service (06) | DRG 280 ==
LOC: EC 16:29 → 6NMEDSUR 20:24 → 3SCARD 06-12 05:14 → 6NMEDSUR 06-12 12:53 → OBSVTOIN 06-12 14:33
PROVIDERS: ADMIT Hospitalist; ATTEND Hospitalist
PROC: B2111ZZ Fluoroscopy of Multiple Coronary Arteries using Low Osmolar Contrast (ICD-10-PCS; principal; 2024-06-13)
PROC: 4A023N8 Measurement of Cardiac Sampling and Pressure, Bilateral, Percutaneous Approach (ICD-10-PCS; 2024-06-13)
DX: T82.855A Stenosis of coronary artery stent, initial encounter (principal); I50.23 Acute on chronic systolic (congestive) heart failure; I21.4 Non-ST elevation (NSTEMI) myocardial infarction; N17.9 Acute kidney failure, unspecified; I13.0 Hypertensive heart and chronic kidney disease with heart failure and stage 1 through stage 4 chronic kidney disease, or unspecified chronic kidney disease; J96.11 Chronic respiratory failure with hypoxia; E11.22 Type 2 diabetes mellitus with diabetic chronic kidney disease; J44.9 Chronic obstructive pulmonary disease, unspecified; N18.30 Chronic kidney disease, stage 3 unspecified; I77.1 Stricture of artery; E66.9 Obesity, unspecified; Z68.34 Body mass index [BMI] 34.0-34.9, adult; Z99.81 Dependence on supplemental oxygen; I48.0 Paroxysmal atrial fibrillation; E78.5 Hyperlipidemia, unspecified; I95.1 Orthostatic hypotension; R29.6 Repeated falls; T50.2X5A Adverse effect of carbonic-anhydrase inhibitors, benzothiadiazides and other diuretics, initial encounter; T46.1X5A Adverse effect of calcium-channel blockers, initial encounter; I25.10 Atherosclerotic heart disease of native coronary artery without angina pectoris; I25.82 Chronic total occlusion of coronary artery; H91.90 Unspecified hearing loss, unspecified ear; Y71.1 Therapeutic (nonsurgical) and rehabilitative cardiovascular devices associated with adverse incidents; Z79.82 Long term (current) use of aspirin; I25.2 Old myocardial infarction; Z95.0 Presence of cardiac pacemaker; Z79.84 Long term (current) use of oral hypoglycemic drugs; Z79.899 Other long term (current) drug therapy; Z86.79 Personal history of other diseases of the circulatory system
CPT/HCPCS: 36415; 71046; 80048; 80053; 80061; 82533; 83036; 83735; 84145; 84443; 84484; 85025; 85610; 85730; 87636; 93005; 93306; 93454; 93880; 94760; 96365; 96366; 96375; 99285